=== PATIENT | female | born 1980 | race American Indian/Alaskan Native ===

== ENCOUNTER 2018-02-26 08:52 | Inpatient (IN) | payer MEDICAID ==
[2018-02-26 09:09] VITALS: BMI 26.5
[2018-02-26] MEDS ORDERED: Morphine 4 mg/ml ISec IVP STA (09:43)
[2018-02-26 09:56] LABS: BASO # 0.01 K/mm3 (0.0-2.0); GRAN # 23.73 (1.4-6.5); GRAN % 88.8 % (50.0-68.0); HEMOGLOBIN 11.6 g/dL (12.0-16.0); LYMPH # 1.1 (1.2-3.4); LYMPH % 4.2 % (22.0-35.0); MEAN CELL VOLUME 73.4 fl (80.0-105.0); MEAN CORPUSCULAR HEMOGLOBIN 24.1 pg (25.0-35.0); MEAN CORPUSCULAR HGB CONC 32.9 g/dl (31.0-37.0); MEAN PLATELET VOLUME 11.5 fl (7.0-11.0); MONO # 1.9 (0.1-0.6); PLATELET COUNT 219 10^3/uL (120.0-450.0); RBC 4.81 10^6/uL (3.5-6.1); RED CELL DISTRIBUTION WIDTH 14.9 % (11.5-14.5)
[2018-02-26 10:02] LABS: WHITE BLOOD COUNT 26.7 10^3/uL (4.5-11.0)
--- NOTE | 2018-02-26 10:02 | ED PDOC ---
Arrival/HPI - General Chief Complaint: Back Pain Time Seen by Provider: 02/26/18 09:09 Historian: Patient, Partner (fijermaine) - History of Present Illness Narrative History of Present Illness (Text): 02/26/18 10:00 A 37 year old female, whose past medical history includes hypertension, who is accompanied by madonna, presents to the emergency department complaining of chest pain and left-shoulder pain since last night. Notes chest pain yesterday felt like a tight and pulling sensation. Patient reports also experiencing associated cough with bright red blood, shortness of breath, and lower back pain. States chest pain worsens with cough, and is unable to take deep breaths. Patient denies any fever, or any other complaints at this time. NKDA. No PMD Time/Duration: Other (last night) Past Medical History - Provider Review Nursing Documentation Reviewed: Yes - Cardiac Hx Hypertension: Yes - Psychiatric Hx Substance Use: Yes Family/Social History - Physician Review Nursing Documentation Reviewed: Yes Family/Social History: No Known Family HX Smoking Status: Light Smoker < 10 Cigarettes Daily Hx Alcohol Use: No Hx Substance Use: Yes Substance used: marijuana Allergies/Home Meds Allergies/Adverse Reactions: Allergies No Known Allergies Allergy (Verified 02/26/18 09:06) Home Medications: Home Meds Medication Instructions Recorded Confirmed No Known Home Med 02/26/18 02/26/18 Review of Systems - Physician Review All systems were reviewed & negative as marked: Yes - Review of Systems Constitutional: absent: Fevers Respiratory: SOB, Cough (with bright red blood, which worsens chest pain.) Musculoskeletal: Back Pain (lower back pain) Physical Exam - Physical Exam Narrative Physical Exam (Text): Gen: VS reviewed, alert, well developed, well nourished, nontoxic, moderate distress secondary to pain. ENT: normal pharynx. Eye: EOMI, PERRL. Neck: no JVD, supple, no adenopathy. CV: regular rate, regular rhythm, no rubs, no murmur, no gallops, S1, S2, pulses equal and strong. Pulm: no distress, clear to auscultation, no wheeze, no rhonchi, breath sounds equal, no rales. Abd: soft, nontender, no guarding, no rebound, no rigidity, normal bowel sounds. Ext: no edema. Skin: good color, no rash, no cyanosis. Psych: responds appropriately to questions, normal affect. Neuro: oriented x 3, CN2-12 intact grossly, motor intact, sensation intact. Back: diffuse left upper back and left CVA tenderness. Vital Signs Temp Pulse Resp BP Pulse Ox 02/26/18 08:53 98.1 F 92 H 18 187/104 H 100 Medical Decision Making ED Course and Treatment: 02/26/18 10:05 Impression: 37 year old female with chest pain and left-shoulder pain, associated cough with bright red blood, shortness of breath, and lower back pain. Plan: -- EKG -- Chest X-ray -- Morphine -- Labs -- POC Urine Pregancy Test -- Reassess and disposition Progress Notes: 02/26/18 11:13 re-eval, patient still in significant pain, jsut received dose of morphine. on repeat inspection of the back, patient appears to have midline spinal tenderness at about the TL junction, no CVAT, no cellulitis skin changes, very hot to touch. at this time will extend workup to eval for spinal epidural abscess, add empiric IV abx. Perhaps there is a multifocal source of infection, will continue with CTA as the patient reports hemoptysis. 02/26/18 11:19 02/26/18 14:[address] lopez to the hospitalist service. patient to be admitted for iv abx, tx pneumonia - RAD Interpretation Narrative RAD Interpretations (Text): 02/26/2018 10:47 Chest X-ray IMPRESSION: No active disease. Dictator: Mike Persaud MD Radiology Orders: 02/26/18 09:42 CHEST PORTABLE [RAD] Stat - EKG Interpretation EKG Interpretation (Text): 02/26/18 09:02 nsr at 96 bpm, nml qrs, lvh with repol abn, prolonged QT Interpreted by ED Physician: Yes - Medication Orders Current Medication Orders: Discontinued Medications Morphine Sulfate (Morphine) 4 mg IVP STAT STA Stop: 02/26/18 09:44 Last Admin: 02/26/18 09:55 Dose: 4 mg SHAWNA Pain Assessment Document 02/26/18 09:55 [place] (Rec: 02/26/18 09:55 [place] [facility] [id number] Pain Reassessment Is this a pain reassessment? No Sleep Is patient sleeping during reassessment? No Presence of Pain Presence of Pain Yes Pain Scale Used Protocol: PSCALES Pain Scale Used Numeric Location Pain Location Body Site Back Description Description Intermittent Intensity of Pain at present 10 Pain Behavior Guarding IVP Administration Document 02/26/18 09:55 DIEGO (Rec: 02/26/18 09:55 [place] [facility] [id number] Charges for Administration # of IVP Administrations 1 - Scribe Statement The provider has reviewed the documentation as recorded by the Maxwellibaldair Person Provider Scribe Attestation: All medical record entries made by the Scribaldair were at my direction and personally dictated by me. I have reviewed the chart and agree that the record accurately reflects my personal performance of the history, physical exam, medical decision making, and the department course for this patient. I have also personally directed, reviewed, and agree with the discharge instructions and disposition. Disposition/Present on Arrival - Present on Arrival Any Indicators Present on Arrival: No History of DVT/PE: No History of Uncontrolled Diabetes: No Urinary Catheter: No History of Decub. Ulcer: No History Surgical Site Infection Following: None - Disposition Have Diagnosis and Disposition been Completed?: Yes Diagnosis: Pneumonia Disposition: HOSPITALIZED Disposition Time: 14:44 Patient Plan: Telemetry Condition: STABLE Forms: [employer] ([place])
[2018-02-26 10:04] LABS: ALB/GLOB RATIO 0.8 (1.1-1.8); ALBUMIN 3.9 g/dL (3.0-4.8); ALT/SGPT 20 U/L (7-56); AST/SGOT 25 U/L (14-36); BLOOD UREA NITROGEN 18 mg/dL (7-21); CALCIUM 8.7 mg/dL (8.4-10.5); GFR NON-AFRICAN AMERICAN > 60; INR 1.2; PARTIAL THROMBOPLASTIN TIME 33.3 Seconds (25.1-36.5); PROTHROMBIN TIME 13.8 SECONDS (9.4-12.5)
[2018-02-26 10:15] LABS: TROPONIN I 0.04 ng/mL
[2018-02-26 10:18] LABS: LYMPHOCYTE 9 % (22.0-35.0); MONOCYTE 4 % (1.0-6.0); NEUTROPHIL 77 % (50.0-70.0)
[2018-02-26 10:19] LABS: BAND 10 % (0-2); PLATELET ESTIMATE NORMAL (NORMAL)
[2018-02-26 10:39] LABS: VENOUS BLOOD GAS BASE EXCESS 0.3 mmol/L (0.0-2.0); VENOUS BLOOD GAS PO2 32 mm/Hg (30-55); VENOUS BLOOD PH 7.35 (7.32-7.43)
[2018-02-26 10:43] LABS: PH,URINE 6.5 (4.7-8.0); URINE APPEARANCE CLEAR (CLEAR); URINE BILIRUBIN NEGATIVE (NEGATIVE); URINE BLOOD NEGATIVE (NEGATIVE); URINE COLOR YELLOW (YELLOW); URINE GLUCOSE (UA) NEGATIVE (NEGATIVE); URINE LEUKOCYTE ESTERASE NEGATIVE Leu/uL (NEGATIVE); URINE PROTEIN NEGATIVE mg/dL (<30 mg/dL)
--- NOTE | 2018-02-26 10:51 | RAD ---
Date of service: 02/26/2018 HISTORY: chest pain COMPARISON: No prior. FINDINGS: LUNGS: No active pulmonary disease. PLEURA: No significant pleural effusion identified, no pneumothorax apparent. CARDIOVASCULAR: No aortic atherosclerotic calcification present. Normal cardiac size. No pulmonary vascular congestion. OSSEOUS STRUCTURES: No significant abnormalities. VISUALIZED UPPER ABDOMEN: Normal. OTHER FINDINGS: None. IMPRESSION: No active disease.
[2018-02-26] MEDS ORDERED: Vancomycin 500 mg Inj IVPB STA (11:15)
[2018-02-26] MEDS ORDERED: Piperacillin/Tazobact 3.375 gm 100 ML IVPB STA (11:16)
[2018-02-26] MEDS ORDERED: Vancomycin 1gm in NS 250ml 1 GM/250 ML BAG IVPB STA (11:19)
[2018-02-26] MEDS ORDERED: Iohexol 350 MG/100 ML VIAL ONE (11:20)
--- NOTE | 2018-02-26 11:57 | CT ---
Date of service: 02/26/2018 PROCEDURE: CT Chest with contrast (Pulmonary Angiogram) HISTORY: pulmonary embolism COMPARISON: None available. TECHNIQUE: Axial computed tomography images were obtained of the chest in the pulmonary arterial phase of enhancement. Coronal and sagittal reformatted images were created and reviewed. Intravenous contrast dose: 100 mL of Omnipaque 350 Radiation dose: Total exam DLP = 418.1 mGy-cm. This CT exam was performed using one or more of the following dose reduction techniques: Automated exposure control, adjustment of the mA and/or kV according to patient size, and/or use of iterative reconstruction technique. FINDINGS: PULMONARY ARTERIES: Suboptimal opacification of the peripheral subsegmental pulmonary arteries. No central pulmonary embolism. The main pulmonary artery is enlarged AORTA: No acute findings. No thoracic aortic aneurysm. No aortic atherosclerotic calcification or mural plaque present. LUNGS: There is airspace consolidation noted at the left lung lower lobe may represent a pneumonia or aspiration. PLEURAL SPACES: Unremarkable. No effusion or pneumothorax. HEART: The heart is enlarged. No evidence of significant pericardial effusion. LYMPH NODES: Mildly enlarged mediastinal and axillary lymphadenopathy noted. BONES, CHEST WALL: Unremarkable. No fracture or destructive lesion OTHER FINDINGS: The scans through the upper abdomen demonstrate hepatomegaly with diffuse low-attenuation of the liver. IMPRESSION: No evidence of central pulmonary embolus. Suboptimal opacification of the peripheral subsegmental pulmonary arteries. Airspace consolidation at the left lung lower lobe likely representing pneumonia or aspiration. Cardiomegaly. Mild mediastinal and axillary lymphadenopathy.
[2018-02-26] MEDS ORDERED: Gadodiamide 287 MG/ML VIAL (15ML) IV ONE (12:49)
--- NOTE | 2018-02-26 14:28 | MRI ---
Date of service: 02/26/2018 PROCEDURE: MR THORACIC SPINE WITH AND WITHOUT CONTRAST HISTORY: spinal epidural abscess COMPARISON: None available. TECHNIQUE: Multiecho multiplanar sequences were performed through the thoracic spine with and without the use of intravenous contrast. FINDINGS: ALIGNMENT: Normal thoracic spinal alignment. Normal thoracic kyphosis. VERTEBRA: Vertebral body height are preserved. MARROW: Marrow signal unremarkable. PARASPINAL SOFT TISSUES: Unremarkable. CORD: Unremarkable thoracic cord. No volume loss, signal abnormality or syrinx. DISCS: No disc herniation, spinal canal stenosis, or neuroforaminal narrowing. ENHANCEMENT: No abnormal enhancement. OTHER FINDINGS: None. IMPRESSION: No MRI evidence of epidural abscess. No evidence of spinal or neural foraminal narrowing. No evidence of discitis osteomyelitis.
--- NOTE | 2018-02-26 14:34 | MRI ---
Date of service: 02/26/2018 PROCEDURE: MR LUMBAR SPINE WITH AND WITHOUT CONTRAST HISTORY: spinal epidural abscess COMPARISON: None available. TECHNIQUE: Multiecho multiplanar sequences were performed through the lumbar spine with and without the use of intravenous contrast. FINDINGS: Normal lumbar lordosis. Vertebral body heights are preserved. Marrow signal unremarkable. Conus medullaris unremarkable at the level of T12 Paraspinal soft tissues are unremarkable. No abnormal enhancement. T12-L1: No disc herniation, spinal canal stenosis or neural foraminal narrowing. L1-2: No disc herniation, spinal canal stenosis or neural foraminal narrowing. L2-3: No disc herniation, spinal canal stenosis or neural foraminal narrowing. L3-4: No disc herniation, spinal canal stenosis or neural foraminal narrowing. L4-5: No disc herniation, spinal canal stenosis or neural foraminal narrowing. L5-S1: Ndoh-xi-wlyygbaj degenerative disc and endplate changes noted. There is bulging disc at L5-S1 associated with mild posterior ligament and facet joint hypertrophy which resulting in mild spinal and neural foraminal narrowing. OTHER FINDINGS: None. IMPRESSION: No evidence of epidural abscess. Degenerative changes and bulging disc at L5-S1 associated with posterior ligament and facet joint hypertrophy which resulting in mild spinal and neural foraminal narrowing.
[2018-02-26] MEDS ORDERED: Magnesium Sulfate 2 GM in Sodium Chloride 0.9% 100 ML IVPB ONE (16:47)
--- NOTE | 2018-02-26 16:48 | CP.PCM.HP ---
<Kota Hanks - Last Filed: 02/26/18 20:31> History of Present Illness - History of Present Illness History of Present Illness: CC: Cough, chest pain, and back pain 37 F with PMHx of HTN non compliant with her medications (last took her BP medication 4 years ago) presents to the ED with cough, chest pain, and back pain. Patient states that her cough started 1 week ago and this morning it was productive with white phlegm that was blood tinged. She also complained of L sided chest pain that started last night and radiating to her neck and back. Patient also complained of lower back pain since last night. Patient denies any sick contacts or travel history. Denies any fever,chills, palpitations, sob, abd pain, n/v/d. 12 Point ROS performed and neg other than stated above PMH: HTN PSH: Denies Med: none ALL: NKDA SH: smokes 1/2 PPD, deneis etoh use, admits tosmoking marijuana FH: mother with DM Present on Admission - Present on Admission Any Indicators Present on Admission: No Review of Systems - Review of Systems All systems: reviewed and no additional remarkable complaints except Past Patient History - Past Social History Smoking Status: Light Smoker < 10 Cigarettes Daily - CARDIAC Hx Hypertension: Yes - PSYCHIATRIC Hx Substance Use: Yes Meds Allergies/Adverse Reactions: Allergies Allergy/AdvReac Type Severity Reaction Status Date / Time No Known Allergies Allergy Verified 02/26/18 18:16 Physical Exam - Head Exam Head Exam: ATRAUMATIC, NORMOCEPHALIC - Eye Exam Eye Exam: EOMI, PERRL Pupil Exam: PERRL - Respiratory Exam Respiratory Exam: Rhonchi (crackles of b/l lower lung feilds ) - Cardiovascular Exam Cardiovascular Exam: REGULAR RHYTHM, +S1, +S2 - GI/Abdominal Exam GI & Abdominal Exam: Normal Bowel Sounds, Soft - Extremities Exam Extremities exam: Negative for: calf tenderness, pedal edema - Back Exam Back exam: FULL ROM, tenderness. absent: paraspinal tenderness, vertebral tenderness - Neurological Exam Neurological exam: Alert, CN II-XII Intact, Normal Gait - Psychiatric Exam Psychiatric exam: Normal Affect, Normal Mood - Skin Skin Exam: Normal Color, Warm Results - Vital Signs Recent Vital Signs: Last Vital Signs Temp 99.5 F 02/26/18 16:16 Pulse 92 H 02/26/18 16:00 Resp 18 02/26/18 16:00 BP 151/91 H 02/26/18 16:00 Pulse Ox 100 02/26/18 16:00 - Labs Result Diagrams: 02/26/18 09:35 02/26/18 09:35 Labs: Laboratory Results - last 24 hr 02/26/18 02/26/18 02/26/18 09:00 09:35 09:35 WBC 26.7 H* RBC 4.81 Hgb 11.6 L Hct 35.3 L MCV 73.4 L MCH 24.1 L MCHC 32.9 RDW 14.9 H Plt Count 219 MPV 11.5 H Gran % 88.8 H Lymph % (Auto) 4.2 L [place] % (Auto) 7.0 H Eos % (Auto) 0.0 L Baso % (Auto) 0.0 Gran # 23.73 H Lymph # (Auto) 1.1 L [place] # (Auto) 1.9 H Eos # (Auto) 0.0 Baso # (Auto) 0.01 Neutrophils % (Manual) 77 H Band Neutrophils % 10 H Lymphocytes % (Manual) 9 L Monocytes % (Manual) 4 Platelet Evaluation Normal ESR 30 H PT 13.8 H INR 1.20 APTT 33.3 D-Dimer, Quantitative 269 H pO2 VBG pH VBG pCO2 VBG HCO3 VBG Total CO2 VBG O2 Sat (Calc) VBG Base Excess VBG Potassium Glucose Lactate FiO2 Sodium Potassium Chloride Carbon Dioxide Anion Gap BUN Creatinine Est GFR ( Amer) Est GFR (Non-Af Amer) Random Glucose Calcium Magnesium Total Bilirubin AST ALT Alkaline Phosphatase Troponin I Total Protein Albumin Globulin Albumin/Globulin Ratio TSH 3rd Generation Venous Blood Potassium Urine Color Urine Appearance Urine pH Ur Specific [place] Urine Protein Urine Glucose (UA) Urine Ketones Urine Blood Urine Nitrate Urine Bilirubin Urine Urobilinogen Ur Leukocyte Esterase Influenza Typ A,B (EIA) 02/26/18 02/26/18 02/26/18 09:35 09:35 10:14 WBC RBC Hgb Hct MCV MCH MCHC RDW Plt Count MPV Gran % Lymph % (Auto) [place] % (Auto) Eos % (Auto) Baso % (Auto) Gran # Lymph # (Auto) [place] # (Auto) Eos # (Auto) Baso # (Auto) Neutrophils % (Manual) Band Neutrophils % Lymphocytes % (Manual) Monocytes % (Manual) Platelet Evaluation ESR PT INR APTT D-Dimer, Quantitative pO2 32 VBG pH 7.35 VBG pCO2 48.0 VBG HCO3 26.5 VBG Total CO2 28.0 VBG O2 Sat (Calc) 63.7 VBG Base Excess 0.3 VBG Potassium 3.6 Glucose 121 H Lactate 1.0 FiO2 21.0 Sodium 136 135.0 Potassium 3.7 Chloride 103 102.0 Carbon Dioxide 26 Anion Gap 11 BUN 18 Creatinine 0.8 Est GFR ( Amer) > 60 Est GFR (Non-Af Amer) > 60 Random Glucose 117 H Calcium 8.7 Magnesium 1.6 L Total Bilirubin 1.4 H AST 25 ALT 20 Alkaline Phosphatase 59 Troponin I 0.04 Total Protein 9.0 H Albumin 3.9 Globulin 5.1 Albumin/Globulin Ratio 0.8 L TSH 3rd Generation 0.58 Venous Blood Potassium 3.6 Urine Color Urine Appearance Urine pH Ur Specific [place] Urine Protein Urine Glucose (UA) Urine Ketones Urine Blood Urine Nitrate Urine Bilirubin Urine Urobilinogen Ur Leukocyte Esterase Influenza Typ A,B (EIA) 02/26/18 02/26/18 10:18 10:30 WBC RBC Hgb Hct MCV MCH MCHC RDW Plt Count MPV Gran % Lymph % (Auto) [place] % (Auto) Eos % (Auto) Baso % (Auto) Gran # Lymph # (Auto) [place] # (Auto) Eos # (Auto) Baso # (Auto) Neutrophils % (Manual) Band Neutrophils % Lymphocytes % (Manual) Monocytes % (Manual) Platelet Evaluation ESR PT INR APTT D-Dimer, Quantitative pO2 VBG pH VBG pCO2 VBG HCO3 VBG Total CO2 VBG O2 Sat (Calc) VBG Base Excess VBG Potassium Glucose Lactate FiO2 Sodium Potassium Chloride Carbon Dioxide Anion Gap BUN Creatinine Est GFR ( Amer) Est GFR (Non-Af Amer) Random Glucose Calcium Magnesium Total Bilirubin AST ALT Alkaline Phosphatase Troponin I Total Protein Albumin Globulin Albumin/Globulin Ratio TSH 3rd Generation Venous Blood Potassium Urine Color Yellow Urine Appearance Clear Urine pH 6.5 Ur Specific [place] <= 1.005 Urine Protein Negative Urine Glucose (UA) Negative Urine Ketones Negative Urine Blood Negative Urine Nitrate Negative Urine Bilirubin Negative Urine Urobilinogen 1.0 H Ur Leukocyte Esterase Negative Influenza Typ A,B (EIA) Negative for flu a/b Assessment & Plan - Assessment and Plan (Free Text) Assessment: 37 F with PMHx of HTN non compliant with her medications (last took her BP medication 4 years ago) presents to the ED with cough, chest pain, and backpain, found to be sepsit with L lower lobe pneumonia. Sepsis with Left lower lobe pneumonia - Fever 102.8F and tachycardic in the ED - CT chest shows LLL pneumonia - Thoracic and lumbar MRI showed no acute dx - Broad spectrum abx with Vanc and zosyn - Septic work up with sputum culture, strep and legionella. Influenza was neg - Duoneb as needed for wheezing and sob - Tylenol as needed for fever - Mucinex as needed for cough - Daily labs Hx of HTN - EKG and chest CT shows signs of cardiomegally - Started on Lisinopril - Echo ordered GI/DVT ppx - Protonix and lovenox sc - Heart healthy diet Case and plan was reviewed and discussed with Dr Rader. <Catalina Rader - Last Filed: 03/03/18 18:10> Results - Vital Signs Recent Vital Signs: Last Vital Signs Temp 99.4 F 03/03/18 12:58 Pulse 75 03/03/18 15:30 Resp 20 03/03/18 12:58 BP 133/65 03/03/18 15:30 Pulse Ox 99 03/03/18 00:00 - Labs Result Diagrams: 03/03/18 07:00 03/03/18 07:00 Labs: Laboratory Results - last 24 hr 03/03/18 03/03/18 03/03/18 07:00 07:00 07:27 WBC 10.4 RBC 4.51 Hgb 10.4 L Hct 32.6 L MCV 72.3 L MCH 23.1 L MCHC 31.9 RDW 14.6 H Plt Count 261 MPV 10.4 Gran % 69.3 H Lymph % (Auto) 12.6 L [place] % (Auto) 15.8 H Eos % (Auto) 2.1 Baso % (Auto) 0.2 Gran # 7.17 H Lymph # (Auto) 1.3 [place] # (Auto) 1.6 H Eos # (Auto) 0.2 Baso # (Auto) 0.02 Sodium 136 Potassium 4.1 Chloride 102 Carbon Dioxide 27 Anion Gap 11 BUN 14 Creatinine 0.7 Est GFR ( Amer) > 60 Est GFR (Non-Af Amer) > 60 POC Glucose (mg/dL) 79 Random Glucose 91 Calcium 8.9 Total Bilirubin 0.6 AST 17 ALT 19 Alkaline Phosphatase 58 Total Protein 8.1 Albumin 3.5 Globulin 4.5 Albumin/Globulin Ratio 0.8 L 03/03/18 11:13 WBC RBC Hgb Hct MCV MCH MCHC RDW Plt Count MPV Gran % Lymph % (Auto) [place] % (Auto) Eos % (Auto) Baso % (Auto) Gran # Lymph # (Auto) [place] # (Auto) Eos # (Auto) Baso # (Auto) Sodium Potassium Chloride Carbon Dioxide Anion Gap BUN Creatinine Est GFR ( Amer) Est GFR (Non-Af Amer) POC Glucose (mg/dL) 87 Random Glucose Calcium Total Bilirubin AST ALT Alkaline Phosphatase Total Protein Albumin Globulin Albumin/Globulin Ratio Attending/Attestation - Attestation I have personally seen and examined this patient.: Yes I have fully participated in the care of the patient.: Yes I have reviewed all pertinent clinical information: Yes Notes (Text): 03/03/18 18:09 Medical record note made by the resident after discussion with my direction and input after the patient was personally seen and examined by me. I have reviewed the chart and agree that the record accurately reflects by personal performance of the history, physical exam, data review, and medical decision-making, in the course for the patient. I have also personally directed the plan of care. 37 F with PMHx of HTN non compliant with her medications presents to the ED with cough, chest pain, and backpain, found to be septic with L lower lobe pneumonia and uncontrolled HTN Agreed with IV antibiotics,we will follow up cultures. We will also adjust patient anti hypertensive medications. Management plan was discussed in detail with patient. Education was provided.
[2018-02-26] MEDS ORDERED: Magnesium Sulfate 2 GM in 50 ml Water IVPB ONE (17:00)
--- NOTE | 2018-02-26 17:58 | CARD ---
APPROVED REPORT Date of service: 02/26/2018 EKG Measurement Heart [id number] <Conclusion> Normal sinus rhythm Biatrial enlargement Left ventricular hypertrophy with repolarization abnormality Nonspecific ST abnormality Prolonged QT Abnormal ECG
[2018-02-26] MEDS: guaiFENesin-DM 600-30 mg ER Tab PO SCH (19:05)
[2018-02-26] MEDS ORDERED: Pneumococcal 23-Valent Vaccine IM ONE (21:24)
[2018-02-26] MEDS ORDERED: Influenza Vaccine 60 mcg/0.5 mL SYR (4YR UP) IM ONE (21:24)
[2018-02-26] MEDS: Piperacillin/Tazobact 3.375 gm 100 ML IVPB SCH (21:53)
[2018-02-26] MEDS ORDERED: Piperacillin/Tazobact 3.375 gm 100 ML IVPB SCH (22:00)
[2018-02-26] MEDS: Vancomycin 1gm in NS 250ml 1 GM/250 ML BAG IVPB SCH (23:15)
[2018-02-27] MEDS: Pantoprazole 40 mg EC Tab PO SCH (06:09)
[2018-02-27] MEDS: Piperacillin/Tazobact 3.375 gm 100 ML IVPB SCH ×3 (06:09→22:11)
[2018-02-27 06:55] LABS: BASO # 0.03 K/mm3 (0.0-2.0); BASO % 0.1 % (0.0-3.0); EOS % 0.1 % (1.5-5.0); GRAN # 27.62 (1.4-6.5); GRAN % 90.6 % (50.0-68.0); HEMOGLOBIN 12.5 g/dL (12.0-16.0); LYMPH # 1.8 (1.2-3.4); LYMPH % 5.8 % (22.0-35.0); MEAN CELL VOLUME 72.3 fl (80.0-105.0); MEAN CORPUSCULAR HEMOGLOBIN 23.9 pg (25.0-35.0); MEAN PLATELET VOLUME 11.3 fl (7.0-11.0); MONO % 3.4 % (1.0-6.0); RBC 5.24 10^6/uL (3.5-6.1); RED CELL DISTRIBUTION WIDTH 15.3 % (11.5-14.5)
--- NOTE | 2018-02-27 07:00 | CP.PCM.CON ---
<Denise Schuster - Last Filed: 02/27/18 10:13> History of Present Illness - History of Present Illness History of Present Illness: ID Consult Note - Dr. Ward CC: Productive cough and low back/chest pain HPI: 37 F with a PMHx of HTN and hx of miscarriage, and ovarian cyst presented to the [facility] with complaints of a productive cough x 1 week and associated chest and back discomfort. Patient states that she is producing whitish-yellow phlegm. However, last night the patient began to have associated lito blood in sputum x3 and back and chest pain that began last night. Patient noted that her chest and back pain are non-localized and radiate to her left neck and shoulder, as well as low back pain that also began last night. At its worst the pain was rated 10/10 and is intermittent and achy in quality and exacerbated by coughing, and 6/10 at its best. Patient has not traveled recently, and denied any sick contacts. Upon arrival to ED, pt found to be septic with fever, tachycardia, and leukocytosis. ID was consulted for management of pneumonia. Patient was seen and examined at bedside. No acute complaints at this time. Patient denied fever, chills, shortness of breath, palpitations, lightheadedness, headaches, abdominal pains, nausea, vomiting, diarrhea, constipation, dysuria, or hematuria. PMHx: HTN - noncompliant with meds, epidural complication, miscarriage, and ovarian cyst PSHx: Denied SHx: +tobacco: current 1/2 PPD, + marijuana, - etoh, denied ivdu FamHx: Mother: DM and emphysema Allergies: NKDA Meds: None Review of Systems - Review of Systems Review of Systems: as per HPI otherwise negative Past Patient History - Past Social History Smoking Status: Current Some Days Smoker - CARDIAC Hx Cardiac Disorders: Yes Hx Hypertension: Yes - PULMONARY Hx Respiratory Disorders: Yes (SMOKES 2-3 CIG A DAY,SMOKED SINCE SHE WAS 15 YRS OLD.) - NEUROLOGICAL Hx Neurological Disorder: No - HEENT Hx HEENT Problems: No - RENAL Hx Chronic Kidney Disease: No - ENDOCRINE/METABOLIC Hx Endocrine Disorders: No - HEMATOLOGICAL/ONCOLOGICAL Hx Blood Disorders: No - INTEGUMENTARY Hx Dermatological Problems: No - MUSCULOSKELETAL/RHEUMATOLOGICAL Hx Musculoskeletal Disorders: Yes (BULGING DISC,SPINAL STENOSIS ABSCESS) Hx Falls: No Hx Unsteady Gait: Yes - GASTROINTESTINAL Hx Gastrointestinal Disorders: No - GENITOURINARY/GYNECOLOGICAL Hx Genitourinary Disorders: No - PSYCHIATRIC Hx Psychophysiologic Disorder: No Hx Substance Use: Yes (MARIJUANA USE) - SURGICAL HISTORY Hx Surgeries: Yes Meds Allergies/Adverse Reactions: Allergies Allergy/AdvReac Type Severity Reaction Status Date / Time No Known Allergies Allergy Verified 02/26/18 18:16 - Medications Medications: Current Medications Acetaminophen (Tylenol 325mg Tab) 650 mg PO Q6H PRN PRN Reason: Fever >100.4 F Albuterol/Ipratropium (Duoneb 3 Mg/0.5 Mg (3 Ml) Ud) 3 ml IH [id number] PRN PRN Reason: Shortness of Breath Doxycycline Hyclate (Doryx) 100 mg PO Q12 ROSA; Protocol Last Admin: 02/26/18 23:15 Dose: 100 mg Enoxaparin Sodium (Lovenox) 40 mg SC DAILY ROSA; Protocol Guaifenesin/Dextromethorphan (Mucinex-Dm 600-30 Mg) 1 tab PO BID [facility] Last Admin: 02/26/18 19:05 Dose: 1 tab Piperacillin Sod/Tazobactam Sod (Zosyn 3.375 In Ns 100ml) 100 mls @ 25 mls/hr IVPB Q8 ROSA; Protocol Stop: 03/05/18 22:01 Last Admin: 02/27/18 06:09 Dose: 25 mls/hr Vancomycin HCl (Vancomycin 1gm) 1 gm in 250 mls @ 167 mls/hr IVPB Q12 [facility]; Protocol Last Admin: 02/26/18 23:15 Dose: 167 mls/hr Ketorolac Tromethamine (Toradol) 15 mg IVP Q6H [facility] Last Admin: 02/27/18 06:10 Dose: 15 mg Lisinopril (Zestril) 5 mg PO DAILY [facility] Last Admin: 02/26/18 19:04 Dose: 5 mg Pantoprazole Sodium (Protonix Ec Tab) 40 mg PO 0600 [facility] Last Admin: 02/27/18 06:09 Dose: 40 mg Physical Exam - Constitutional Appears: No Acute Distress - Head Exam Head Exam: ATRAUMATIC, NORMAL INSPECTION, NORMOCEPHALIC - Eye Exam Eye Exam: EOMI, Normal appearance, PERRL Pupil Exam: NORMAL ACCOMODATION, PERRL - ENT Exam ENT Exam: Mucous Membranes Dry - Respiratory Exam Respiratory Exam: Decreased Breath Sounds, Rhonchi - Cardiovascular Exam Cardiovascular Exam: REGULAR RHYTHM, +S1, +S2 - GI/Abdominal Exam GI & Abdominal Exam: Normal Bowel Sounds, Soft. absent: Tenderness - Extremities Exam Extremities exam: Positive for: normal inspection - Back Exam Back exam: NORMAL INSPECTION, tenderness - Neurological Exam Neurological exam: Alert, CN II-XII Intact, Oriented x3, Reflexes Normal - Psychiatric Exam Psychiatric exam: Normal Affect, Normal Mood - Skin Skin Exam: Dry, Intact, Normal Color, Warm Results - Vital Signs Recent Vital Signs: Last Vital Signs Temp 99.5 F 02/27/18 00:01 Pulse 91 H 02/27/18 02:00 Resp 20 02/27/18 00:01 BP 174/77 H 02/27/18 00:01 Pulse Ox 98 02/27/18 00:01 - Labs Result Diagrams: 02/27/18 05:50 02/27/18 05:50 Labs: Laboratory Results - last 24 hr 02/26/18 02/26/18 02/26/18 09:00 09:35 09:35 WBC 26.7 H* RBC 4.81 Hgb 11.6 L Hct 35.3 L MCV 73.4 L MCH 24.1 L MCHC 32.9 RDW 14.9 H Plt Count 219 MPV 11.5 H Gran % 88.8 H Lymph % (Auto) 4.2 L [place] % (Auto) 7.0 H Eos % (Auto) 0.0 L Baso % (Auto) 0.0 Gran # 23.73 H Lymph # (Auto) 1.1 L [place] # (Auto) 1.9 H Eos # (Auto) 0.0 Baso # (Auto) 0.01 Neutrophils % (Manual) 77 H Band Neutrophils % 10 H Lymphocytes % (Manual) 9 L Monocytes % (Manual) 4 Platelet Evaluation Normal ESR 30 H PT 13.8 H INR 1.20 APTT 33.3 D-Dimer, Quantitative 269 H pO2 VBG pH VBG pCO2 VBG HCO3 VBG Total CO2 VBG O2 Sat (Calc) VBG Base Excess VBG Potassium Glucose Lactate FiO2 Sodium Potassium Chloride Carbon Dioxide Anion Gap BUN Creatinine Est GFR ( Amer) Est GFR (Non-Af Amer) Random Glucose Hemoglobin A1c Calcium Magnesium Total Bilirubin AST ALT Alkaline Phosphatase Troponin I Total Protein Albumin Globulin Albumin/Globulin Ratio Procalcitonin TSH 3rd Generation Venous Blood Potassium Urine Color Urine Appearance Urine pH Ur Specific [place] Urine Protein Urine Glucose (UA) Urine Ketones Urine Blood Urine Nitrate Urine Bilirubin Urine Urobilinogen Ur Leukocyte Esterase Influenza Typ A,B (EIA) 02/26/18 02/26/18 02/26/18 09:35 09:35 10:14 WBC RBC Hgb Hct MCV MCH MCHC RDW Plt Count MPV Gran % Lymph % (Auto) [place] % (Auto) Eos % (Auto) Baso % (Auto) Gran # Lymph # (Auto) [place] # (Auto) Eos # (Auto) Baso # (Auto) Neutrophils % (Manual) Band Neutrophils % Lymphocytes % (Manual) Monocytes % (Manual) Platelet Evaluation ESR PT INR APTT D-Dimer, Quantitative pO2 32 VBG pH 7.35 VBG pCO2 48.0 VBG HCO3 26.5 VBG Total CO2 28.0 VBG O2 Sat (Calc) 63.7 VBG Base Excess 0.3 VBG Potassium 3.6 Glucose 121 H Lactate 1.0 FiO2 21.0 Sodium 136 135.0 Potassium 3.7 Chloride 103 102.0 Carbon Dioxide 26 Anion Gap 11 BUN 18 Creatinine 0.8 Est GFR ( Amer) > 60 Est GFR (Non-Af Amer) > 60 Random Glucose 117 H Hemoglobin A1c Calcium 8.7 Magnesium 1.6 L Total Bilirubin 1.4 H AST 25 ALT 20 Alkaline Phosphatase 59 Troponin I 0.04 Total Protein 9.0 H Albumin 3.9 Globulin 5.1 Albumin/Globulin Ratio 0.8 L Procalcitonin TSH 3rd Generation 0.58 Venous Blood Potassium 3.6 Urine Color Urine Appearance Urine pH Ur Specific [place] Urine Protein Urine Glucose (UA) Urine Ketones Urine Blood Urine Nitrate Urine Bilirubin Urine Urobilinogen Ur Leukocyte Esterase Influenza Typ A,B (EIA) 02/26/18 02/26/18 02/26/18 10:18 10:30 13:00 WBC RBC Hgb Hct MCV MCH MCHC RDW Plt Count MPV Gran % Lymph % (Auto) [place] % (Auto) Eos % (Auto) Baso % (Auto) Gran # Lymph # (Auto) [place] # (Auto) Eos # (Auto) Baso # (Auto) Neutrophils % (Manual) Band Neutrophils % Lymphocytes % (Manual) Monocytes % (Manual) Platelet Evaluation ESR PT INR APTT D-Dimer, Quantitative pO2 VBG pH VBG pCO2 VBG HCO3 VBG Total CO2 VBG O2 Sat (Calc) VBG Base Excess VBG Potassium Glucose Lactate FiO2 Sodium Potassium Chloride Carbon Dioxide Anion Gap BUN Creatinine Est GFR ( Amer) Est GFR (Non-Af Amer) Random Glucose Hemoglobin A1c Calcium Magnesium Total Bilirubin AST ALT Alkaline Phosphatase Troponin I Total Protein Albumin Globulin Albumin/Globulin Ratio Procalcitonin 2.99 H TSH 3rd Generation Venous Blood Potassium Urine Color Yellow Urine Appearance Clear Urine pH 6.5 Ur Specific [place] <= 1.005 Urine Protein Negative Urine Glucose (UA) Negative Urine Ketones Negative Urine Blood Negative Urine Nitrate Negative Urine Bilirubin Negative Urine Urobilinogen 1.0 H Ur Leukocyte Esterase Negative Influenza Typ A,B (EIA) Negative for flu a/b 02/26/18 02/26/18 02/26/18 17:00 17:45 22:00 WBC RBC Hgb Hct MCV MCH MCHC RDW Plt Count MPV Gran % Lymph % (Auto) [place] % (Auto) Eos % (Auto) Baso % (Auto) Gran # Lymph # (Auto) [place] # (Auto) Eos # (Auto) Baso # (Auto) Neutrophils % (Manual) Band Neutrophils % Lymphocytes % (Manual) Monocytes % (Manual) Platelet Evaluation ESR PT INR APTT D-Dimer, Quantitative pO2 VBG pH VBG pCO2 VBG HCO3 VBG Total CO2 VBG O2 Sat (Calc) VBG Base Excess VBG Potassium Glucose Lactate FiO2 Sodium Potassium Chloride Carbon Dioxide Anion Gap BUN Creatinine Est GFR ( Amer) Est GFR (Non-Af Amer) Random Glucose Hemoglobin A1c 5.9 Calcium Magnesium Total Bilirubin AST ALT Alkaline Phosphatase Troponin I 0.05 D 0.05 Total Protein Albumin Globulin Albumin/Globulin Ratio Procalcitonin TSH 3rd Generation Venous Blood Potassium Urine Color Urine Appearance Urine pH Ur Specific [place] Urine Protein Urine Glucose (UA) Urine Ketones Urine Blood Urine Nitrate Urine Bilirubin Urine Urobilinogen Ur Leukocyte Esterase Influenza Typ A,B (EIA) Assessment & Plan - Assessment and Plan (Free Text) Assessment: 37 F with a PMHx of HTN presented to the [facility] with complaints of a productive cough x 1 week and associated chest and back discomfort found to be septic with a Left lower lobe pneumonia on Chest CT. CAP Gm + Bacteremia Low back pain leukocytosis HTN Prolonged QTc H/o spinal epidural complication during tobacco abuse cannabis abuse Chest CT reviewed and demonstrated left lower lobe pneumonia, uptrending leukocytosis, elevated ESR, elevated PCT, negative flu, follow up blood culture, urine culture, sputum culture, CRP, Strep ag, HIV, Legionella, UA, UCx. MRI of t he thoracic spine shows no discitis, osteomyletis. MRI Lumbar spine shows degenerative changes. Will place pt on vancomycin, zosyn, and doxycycline. Recommend further evaluation of ovarian cyst - US. Will continue to monitor clinically and reassess after pending labs. <Vadim Ward - Last Filed: 02/27/18 17:22> Meds - Medications Medications: Current Medications Acetaminophen (Tylenol 325mg Tab) 650 mg PO Q6H PRN PRN Reason: Fever >100.4 F Albuterol/Ipratropium (Duoneb 3 Mg/0.5 Mg (3 Ml) Ud) 3 ml IH [id number] PRN PRN Reason: Shortness of Breath Last Admin: 02/27/18 11:20 Dose: 3 ml Doxycycline Hyclate (Doryx) 100 mg PO Q12 [facility]A; Protocol Last Admin: 02/27/18 11:25 Dose: 100 mg Enoxaparin Sodium (Lovenox) 40 mg SC DAILY [facility]; Protocol Last Admin: 02/27/18 11:26 Dose: 40 mg Guaifenesin/Dextromethorphan (Mucinex-Dm 600-30 Mg) 1 tab PO BID [facility] Last Admin: 02/27/18 11:25 Dose: 1 tab Piperacillin Sod/Tazobactam Sod (Zosyn 3.375 In Ns 100ml) 100 mls @ 25 mls/hr IVPB Q8 [facility]; Protocol Stop: 03/05/18 22:01 Last Admin: 02/27/18 14:33 Dose: 25 mls/hr Vancomycin HCl (Vancomycin 1gm) 1 gm in 250 mls @ 167 mls/hr IVPB Q12 [facility]; Protocol Last Admin: 02/27/18 11:26 Dose: 167 mls/hr Ketorolac Tromethamine (Toradol) 15 mg IVP Q4H [facility] Last Admin: 02/27/18 14:33 Dose: 15 mg Lisinopril (Zestril) 5 mg PO DAILY [facility] Last Admin: 02/27/18 11:24 Dose: 5 mg Ondansetron HCl (Zofran Inj) 4 mg IVP Q6H PRN PRN Reason: Nausea/Vomiting Pantoprazole Sodium (Protonix Ec Tab) 40 mg PO 0600 [facility] Last Admin: 02/27/18 06:09 Dose: 40 mg Results - Vital Signs Recent Vital Signs: Last Vital Signs Temp 98.5 F 02/27/18 11:38 Pulse 86 02/27/18 11:38 Resp 20 02/27/18 11:38 BP 183/109 H 02/27/18 11:38 Pulse Ox 98 02/27/18 06:00 - Labs Result Diagrams: 02/27/18 05:50 02/27/18 05:50 Labs: Laboratory Results - last 24 hr 02/26/18 02/26/18 02/26/18 09:00 13:00 17:00 WBC RBC Hgb Hct MCV MCH MCHC RDW Plt Count MPV Gran % Lymph % (Auto) [place] % (Auto) Eos % (Auto) Baso % (Auto) Gran # Lymph # (Auto) [place] # (Auto) Eos # (Auto) Baso # (Auto) Sodium Potassium Chloride Carbon Dioxide Anion Gap BUN Creatinine Est GFR ( Amer) Est GFR (Non-Af Amer) Random Glucose Hemoglobin A1c 5.9 Calcium Magnesium Total Bilirubin AST ALT Alkaline Phosphatase Troponin I C-React Prot High Sens > 15.00 H Total Protein Albumin Globulin Albumin/Globulin Ratio Procalcitonin 2.99 H Urine Opiates Screen Urine Methadone Screen Ur Barbiturates Screen Ur Phencyclidine Scrn Ur Amphetamines Screen U Benzodiazepines Scrn U Oth Cocaine Metabols U Cannabinoids Screen HIV 1&2 Ag/Ab, 4th Gen Ur L.pneumophila Ag 02/26/18 02/26/18 02/26/18 17:45 20:30 22:00 WBC RBC Hgb Hct MCV MCH MCHC RDW Plt Count MPV Gran % Lymph % (Auto) [place] % (Auto) Eos % (Auto) Baso % (Auto) Gran # Lymph # (Auto) [place] # (Auto) Eos # (Auto) Baso # (Auto) Sodium Potassium Chloride Carbon Dioxide Anion Gap BUN Creatinine Est GFR ( Amer) Est GFR (Non-Af Amer) Random Glucose Hemoglobin A1c Calcium Magnesium Total Bilirubin AST ALT Alkaline Phosphatase Troponin I 0.05 D 0.05 C-React Prot High Sens Total Protein Albumin Globulin Albumin/Globulin Ratio Procalcitonin Urine Opiates Screen Urine Methadone Screen Ur Barbiturates Screen Ur Phencyclidine Scrn Ur Amphetamines Screen U Benzodiazepines Scrn U Oth Cocaine Metabols U Cannabinoids Screen HIV 1&2 Ag/Ab, 4th Gen Nonreactive Ur L.pneumophila Ag 02/27/18 02/27/18 02/27/18 05:50 05:50 09:00 WBC 30.5 H* RBC 5.24 Hgb 12.5 Hct 37.9 MCV 72.3 L MCH 23.9 L MCHC 33.0 RDW 15.3 H Plt Count 212 MPV 11.3 H Gran % 90.6 H Lymph % (Auto) 5.8 L [place] % (Auto) 3.4 Eos % (Auto) 0.1 L Baso % (Auto) 0.1 Gran # 27.62 H Lymph # (Auto) 1.8 [place] # (Auto) 1.0 H Eos # (Auto) 0.0 Baso # (Auto) 0.03 Sodium 138 Potassium 3.5 L Chloride 104 Carbon Dioxide 26 Anion Gap 10 BUN 15 Creatinine 0.8 Est GFR ( Amer) > 60 Est GFR (Non-Af Amer) > 60 Random Glucose 104 Hemoglobin A1c Calcium 8.9 Magnesium 2.2 Total Bilirubin 1.3 AST 30 ALT 19 Alkaline Phosphatase 83 Troponin I C-React Prot High Sens Total Protein 8.5 H Albumin 3.5 Globulin 5.0 Albumin/Globulin Ratio 0.7 L Procalcitonin Urine Opiates Screen Urine Methadone Screen Ur Barbiturates Screen Ur Phencyclidine Scrn Ur Amphetamines Screen U Benzodiazepines Scrn U Oth Cocaine Metabols U Cannabinoids Screen HIV 1&2 Ag/Ab, 4th Gen Ur L.pneumophila Ag Negative 02/27/18 09:00 WBC RBC Hgb Hct MCV MCH MCHC RDW Plt Count MPV Gran % Lymph % (Auto) [place] % (Auto) Eos % (Auto) Baso % (Auto) Gran # Lymph # (Auto) [place] # (Auto) Eos # (Auto) Baso # (Auto) Sodium Potassium Chloride Carbon Dioxide Anion Gap BUN Creatinine Est GFR ( Amer) Est GFR (Non-Af Amer) Random Glucose Hemoglobin A1c Calcium Magnesium Total Bilirubin AST ALT Alkaline Phosphatase Troponin I C-React Prot High Sens Total Protein Albumin Globulin Albumin/Globulin Ratio Procalcitonin Urine Opiates Screen Positive H Urine Methadone Screen Negative Ur Barbiturates Screen Negative Ur Phencyclidine Scrn Negative Ur Amphetamines Screen Negative U Benzodiazepines Scrn Negative U Oth Cocaine Metabols Negative U Cannabinoids Screen Positive H HIV 1&2 Ag/Ab, 4th Gen Ur L.pneumophila Ag Assessment & Plan - Assessment and Plan (Free Text) Assessment: Infectious diseases Attending Physician Attestation Patient seen and examined, discussed with medical numerical control operator. I have reviewed the patient's history of present illness, past medical, social, personal and family histories, pertinent physical exam findings, course so far in this hospital admission, pertinent laboratory and imaging results. I agree with the above findings, assessment and plan. In addition, will start Vancomycin and Zosyn and Doxyccylien for this patient with sepsis due to GPC chains bacteremia with lower lobe CAP. Follow up blood, sputum final cx results. PCT is elevated and can trend. Follow up urine LEgionella Ag as well.
[2018-02-27 07:02] LABS: WHITE BLOOD COUNT 30.5 10^3/uL (4.5-11.0)
[2018-02-27 07:15] LABS: ALB/GLOB RATIO 0.7 (1.1-1.8); ALBUMIN 3.5 g/dL (3.0-4.8); ALT/SGPT 19 U/L (7-56); AST/SGOT 30 U/L (14-36); BLOOD UREA NITROGEN 15 mg/dL (7-21); CALCIUM 8.9 mg/dL (8.4-10.5); GFR NON-AFRICAN AMERICAN > 60
[2018-02-27] MEDS ORDERED: Potassium Chloride 40 mEq/30 ml LIQ UD PO STA (09:23)
[2018-02-27 09:40] LABS: BARBITURATES, UR NEGATIVE (NEGATIVE); BENZODIAZEPINES, UR NEGATIVE (NEGATIVE); OPIATES, UR POSITIVE (NEGATIVE); PHENCYCLIDINE, UR NEGATIVE (NEGATIVE)
[2018-02-27] MEDS ORDERED: Vancomycin 1gm in NS 250ml 1 GM/250 ML BAG IVPB SCH (10:00)
[2018-02-27] MEDS: Albuterol-Ipratrop 3 mg / 0.5 (3 ml) UD IH PRN ×2 (11:20→21:24)
[2018-02-27] MEDS: guaiFENesin-DM 600-30 mg ER Tab PO SCH ×2 (11:25→18:17)
[2018-02-27] MEDS: Vancomycin 1gm in NS 250ml 1 GM/250 ML BAG IVPB SCH ×2 (11:26→22:12)
[2018-02-27] MEDS: Enoxaparin 40 mg Syringe SC SCH (11:26)
--- NOTE | 2018-02-27 12:50 | CP.PCM.PN ---
<Kota Hanks - Last Filed: 02/27/18 12:43> Subjective - Date & Time of Evaluation Date of Evaluation: 02/27/18 Time of Evaluation: 07:00 - Subjective Subjective: Hospitalist Progress Note: Pt seen and examined at bedside. No acute events overnight. Patient c/o R sided flank pain radiating to her groin. Patient states that her cough and associated chest pain has improved. No other complaints. 12 Point ROS performed and neg other than stated above. Objective - Vital Signs/Intake and Output Vital Signs (last 24 hours): Temp Pulse Resp BP Pulse Ox 98.5 F 86 20 183/109 H 98 02/27/18 11:38 02/27/18 11:38 02/27/18 11:38 02/27/18 11:38 02/27/18 06:00 Intake and Output: 02/27/18 02/27/18 06:59 18:59 Intake Total 360 Output Total 2 Balance 358 - Medications Medications: Current Medications Acetaminophen (Tylenol 325mg Tab) 650 mg PO Q6H PRN PRN Reason: Fever >100.4 F Albuterol/Ipratropium (Duoneb 3 Mg/0.5 Mg (3 Ml) Ud) 3 ml IH [id number] PRN PRN Reason: Shortness of Breath Last Admin: 02/27/18 11:20 Dose: 3 ml Doxycycline Hyclate (Doryx) 100 mg PO Q12 ROSA; Protocol Last Admin: 02/27/18 11:25 Dose: 100 mg Enoxaparin Sodium (Lovenox) 40 mg SC DAILY [facility]; Protocol Last Admin: 02/27/18 11:26 Dose: 40 mg Guaifenesin/Dextromethorphan (Mucinex-Dm 600-30 Mg) 1 tab PO BID [facility] Last Admin: 02/27/18 11:25 Dose: 1 tab Piperacillin Sod/Tazobactam Sod (Zosyn 3.375 In Ns 100ml) 100 mls @ 25 mls/hr IVPB Q8 [facility]; Protocol Stop: 03/05/18 22:01 Last Admin: 02/27/18 06:09 Dose: 25 mls/hr Vancomycin HCl (Vancomycin 1gm) 1 gm in 250 mls @ 167 mls/hr IVPB Q12 [facility]; Protocol Last Admin: 02/27/18 11:26 Dose: 167 mls/hr Ketorolac Tromethamine (Toradol) 15 mg IVP Q4H [facility] Last Admin: 02/27/18 11:28 Dose: 15 mg Lisinopril (Zestril) 5 mg PO DAILY [facility] Last Admin: 02/27/18 11:24 Dose: 5 mg Pantoprazole Sodium (Protonix Ec Tab) 40 mg PO 0600 [facility] Last Admin: 02/27/18 06:09 Dose: 40 mg - Labs Labs: 02/27/18 05:50 02/27/18 05:50 PT 13.8 SECONDS (9.4-12.5) H 02/26/18 09:35 INR 1.20 02/26/18 09:35 APTT 33.3 Seconds (25.1-36.5) 02/26/18 09:35 - Constitutional Appears: No Acute Distress - Head Exam Head Exam: ATRAUMATIC, NORMOCEPHALIC - Eye Exam Eye Exam: EOMI, PERRL - ENT Exam ENT Exam: Mucous Membranes Moist - Respiratory Exam Respiratory Exam: Clear to Ausculation Bilateral. absent: Rales, Wheezes - Cardiovascular Exam Cardiovascular Exam: REGULAR RHYTHM, +S1, +S2 - GI/Abdominal Exam GI & Abdominal Exam: Soft. absent: Distended, Tenderness - Back Exam Back Exam: CVA tenderness (R). absent: CVA tenderness (L), paraspinal tenderness, vertebral tenderness - Neurological Exam Neurological Exam: Alert, Awake, Oriented x3 - Psychiatric Exam Psychiatric exam: Normal Mood - Skin Skin Exam: Dry, Warm Assessment and Plan - Assessment and Plan (Free Text) Assessment: 37 F with PMHx of HTN non compliant with her medications (last took her BP medication 4 years ago) presents to the ED with cough, chest pain, and backpain, found to be septic with L lower lobe pneumonia. Sepsis with Left lower lobe pneumonia - Afebrile overnight - WBC increased to 30 - CT chest shows LLL pneumonia - Thoracic and lumbar MRI showed no acute dx - ID consulted - Novak zosyn and added doxy; blood culture Gram + cocci - Septic work up with sputum culture, strep and legionella. Influenza was neg - Duoneb as needed for wheezing and sob - Tylenol as needed for fever - Mucinex as needed for cough - Blood culture showed Gram + cocci - Daily labs R sided flank pain - CT abdomen pelvis w/o contrast - Will follow closely Hx of HTN - EKG and chest CT shows signs of cardiomegaly - Cont Lisinopril - follow up Echo ordered GI/DVT ppx - Protonix and lovenox sc - Heart healthy diet Case and plan was reviewed and discussed with Dr Cheng. <Chaitanya Cheng - Last Filed: 02/28/18 18:00> Objective - Vital Signs/Intake and Output Vital Signs (last 24 hours): Temp Pulse Resp BP Pulse Ox 98.9 F 92 H 20 180/94 H 99 02/28/18 06:00 02/28/18 14:00 02/28/18 12:00 02/28/18 12:12 02/28/18 12:00 Intake and Output: 02/28/18 02/28/18 06:59 18:59 Intake Total 450 Balance 450 - Medications Medications: Current Medications Acetaminophen (Tylenol 325mg Tab) 650 mg PO Q6H PRN PRN Reason: Fever >100.4 F Albuterol/Ipratropium (Duoneb 3 Mg/0.5 Mg (3 Ml) Ud) 3 ml IH [id number] PRN PRN Reason: Shortness of Breath Last Admin: 02/27/18 21:24 Dose: 3 ml Amlodipine Besylate (Norvasc) 5 mg PO DAILY [facility] Last Admin: 02/28/18 12:11 Dose: 5 mg Doxycycline Hyclate (Doryx) 100 mg PO Q12 [facility]; Protocol Last Admin: 02/28/18 12:10 Dose: 100 mg Enoxaparin Sodium (Lovenox) 40 mg SC DAILY [facility]; Protocol Last Admin: 02/28/18 12:10 Dose: Not Given Guaifenesin/Dextromethorphan (Mucinex-Dm 600-30 Mg) 1 tab PO BID [facility] Last Admin: 02/28/18 17:05 Dose: 1 tab Piperacillin Sod/Tazobactam Sod (Zosyn 3.375 In Ns 100ml) 100 mls @ 25 mls/hr IVPB Q8 [facility]; Protocol Stop: 03/05/18 22:01 Last Admin: 02/28/18 14:42 Dose: 25 mls/hr Vancomycin HCl (Vancomycin 1gm) 1 gm in 250 mls @ 167 mls/hr IVPB Q12 [facility]; Protocol Last Admin: 02/28/18 12:12 Dose: 167 mls/hr Ketorolac Tromethamine (Toradol) 15 mg IVP Q4 [facility] Last Admin: 02/28/18 17:05 Dose: 15 mg Lisinopril (Zestril) 20 mg PO DAILY [facility] Last Admin: 02/28/18 12:12 Dose: 20 mg Ondansetron HCl (Zofran Inj) 4 mg IVP Q6H PRN PRN Reason: Nausea/Vomiting Last Admin: 02/28/18 03:25 Dose: 4 mg Pantoprazole Sodium (Protonix Ec Tab) 40 mg PO 0600 [facility] Last Admin: 02/28/18 06:02 Dose: 40 mg - Labs Labs: 02/28/18 06:00 02/28/18 06:00 PT 13.8 SECONDS (9.4-12.5) H 02/26/18 09:35 INR 1.20 02/26/18 09:35 APTT 33.3 Seconds (25.1-36.5) 02/26/18 09:35 Attending/Attestation - Attestation I have personally seen and examined this patient.: Yes I have fully participated in the care of the patient.: Yes I have reviewed all pertinent clinical information, including history, physical exam and plan: Yes Notes (Text): 37 F with PMHx of HTN (non compliant with her medications) here with cough, chest pain, and backpain, found to be septic with L lower lobe pneumonia. Sepsis 2/2 Left lower lobe PNA HTN Right flank pain c/w abx get CT abd/pel to evaluate right flank pain with radiation to the groin c/w current BP meds
--- NOTE | 2018-02-27 14:17 | CT ---
Date of service: 02/27/2018 PROCEDURE: CT Abdomen and Pelvis without intravenous contrast HISTORY: Left lower lobe pneumonia and abdominal pain COMPARISON: February 26, 2018. All CT pulmonary angiogram. TECHNIQUE: Unenhanced. Neither IV nor oral contrast administered Radiation dose: Total exam DLP = 638.26 mGy-cm. This CT exam was performed using one or more of the following dose reduction techniques: Automated exposure control, adjustment of the mA and/or kV according to patient size, and/or use of iterative reconstruction technique. FINDINGS: LOWER THORAX: Redemonstration left lower lobe infiltrate. Incompletely visualized small pericardial effusion. LIVER: Unremarkable. No gross lesion or ductal dilatation. GALLBLADDER AND BILE DUCTS: Unremarkable. PANCREAS: Unremarkable. No gross lesion or ductal dilatation. SPLEEN: Unremarkable. ADRENALS: Unremarkable. No mass. KIDNEYS AND URETERS: Unremarkable. No hydronephrosis. No solid mass. VASCULATURE: Atherosclerotic calcification and mural plaque present. Findings are seen throughout the aorta which is non aneurysmal. BOWEL: Colonic distension. No obstruction. No gross mural thickening. APPENDIX: Unremarkable. Normal appendix. PERITONEUM: Trace free fluid identified in the pelvis/cul de sac. No free air. LYMPH NODES: Unremarkable. No enlarged lymph nodes. BLADDER: Unremarkable. REPRODUCTIVE: Unremarkable. BONES: No acute fracture. OTHER FINDINGS: None. IMPRESSION: Colonic distention without mechanical/obstructing lesion. Redemonstration left lower lobe infiltrate and trace pericardial effusion.
--- NOTE | 2018-02-27 18:35 | CARD ---
APPROVED REPORT Date of service: 02/27/2018 EXAM: Two-dimensional and M-mode echocardiogram with Doppler and color Doppler. INDICATION Hypertension/HCVD CARDIOMEGALY 2D DIMENSIONS Left Atrium (2D)4.2 (1.6-4.0cm)IVSd2.2 (0.7-1.1cm) LVDd4.1 (3.9-5.9cm)PWd1.9 (0.7-1.1cm) LVDs2.5 (2.5-4.0cm)FS (%) 40.0 % LVEF (%)71.1 (>50%) M-Mode DIMENSIONS Aortic Root2.70 (2.2-3.7cm)Aortic Cusp Exc.1.80 (1.5-2.0cm) Aortic Valve AoV Peak Mwjfhbkk637.0cm/Aftab Peak GR.15mmHg Mitral Valve MV E Qwrrqxgt050.0cm/sMV A Mbbvfyac82.2cm/sE/A ratio1.8 TDI E/Lateral E'0.0E/Medial E'0.0 Tricuspid Valve TR Peak [id number]/sRAP [id number] Peak Gr.41mmHg [id number] LEFT VENTRICLE The left ventricle is normal size. There is moderate to severe concentric left ventricular hypertrophy. The left ventricular function is normal. The left ventricular ejection fraction is within the normal range. There is normal LV segmental wall motion. The left ventricular diastolic function is normal. RIGHT VENTRICLE The right ventricle is normal size. There is normal right ventricular wall thickness. The right ventricular systolic function is normal. ATRIA The left atrium is borderline dilated. The right atrium is borderline dilated. AORTIC VALVE The aortic valve is normal in structure. There is no aortic valvular stenosis. MITRAL VALVE The mitral valve is normal in structure. There is no mitral valve regurgitation noted. There is no mitral valve stenosis. TRICUSPID VALVE There is moderate tricuspid regurgitation. There is moderate pulmonary hypertension. PULMONIC VALVE There is mild pulmonic valvular regurgitation. GREAT VESSELS The aortic root is normal in size. PERICARDIAL EFFUSION There is a trace pericardial effusion. <Conclusion> There is moderate to severe concentric left ventricular hypertrophy. The left ventricular function is normal. The left ventricular ejection fraction is within the normal range. There is normal LV segmental wall motion. The left ventricular diastolic function is normal. There is moderate tricuspid regurgitation. There is moderate pulmonary hypertension.
[2018-02-28] MEDS: Pantoprazole 40 mg EC Tab PO SCH (06:02)
[2018-02-28] MEDS: Piperacillin/Tazobact 3.375 gm 100 ML IVPB SCH ×3 (06:03→21:17)
[2018-02-28 06:47] LABS: BASO # 0.02 K/mm3 (0.0-2.0); BASO % 0.1 % (0.0-3.0); EOS # 0.1 (0.0-0.7); EOS % 0.5 % (1.5-5.0); GRAN # 15.66 (1.4-6.5); GRAN % 83.9 % (50.0-68.0); HEMOGLOBIN 10.4 g/dL (12.0-16.0); LYMPH # 1.6 (1.2-3.4); LYMPH % 8.4 % (22.0-35.0); MEAN CELL VOLUME 71.9 fl (80.0-105.0); MEAN CORPUSCULAR HEMOGLOBIN 23.5 pg (25.0-35.0); MEAN CORPUSCULAR HGB CONC 32.7 g/dl (31.0-37.0); MEAN PLATELET VOLUME 10.9 fl (7.0-11.0); MONO # 1.3 (0.1-0.6); MONO % 7.1 % (1.0-6.0); RBC 4.42 10^6/uL (3.5-6.1); RED CELL DISTRIBUTION WIDTH 15.2 % (11.5-14.5); WHITE BLOOD COUNT 18.7 10^3/uL (4.5-11.0)
[2018-02-28 07:08] LABS: ALB/GLOB RATIO 0.7 (1.1-1.8); ALBUMIN 3.3 g/dL (3.0-4.8); ALT/SGPT 15 U/L (7-56); AST/SGOT 24 U/L (14-36); BLOOD UREA NITROGEN 18 mg/dL (7-21); CALCIUM 8.8 mg/dL (8.4-10.5); GFR NON-AFRICAN AMERICAN > 60
--- NOTE | 2018-02-28 08:25 | CP.PCM.PN ---
<Denise Schuster - Last Filed: 02/28/18 13:19> Subjective - Date & Time of Evaluation Date of Evaluation: 02/28/18 Time of Evaluation: 08:15 - Subjective Subjective: ID Progress Note - Dr. Ward Patient seen and examined at bedside. Patient has improved flank/abdominal pain. Pt was tachycardic and hypertensive overnight. Pt is ambulating, voiding freely, and moving bowels regularly. Patient is tolerating po intake. Pt denied fever, chills, shortness of breath, chest pains, abdominal pains, nausea, vomiting, diarrhea, constipation, or dysuria. Objective - Vital Signs/Intake and Output Vital Signs (last 24 hours): Temp Pulse Resp BP Pulse Ox 98.9 F 89 20 160/86 H 98 02/28/18 06:00 02/28/18 06:03 02/28/18 06:00 02/28/18 07:00 02/28/18 06:00 Intake and Output: 02/28/18 02/28/18 06:59 18:59 Intake Total 450 Balance 450 - Medications Medications: Current Medications Acetaminophen (Tylenol 325mg Tab) 650 mg PO Q6H PRN PRN Reason: Fever >100.4 F Albuterol/Ipratropium (Duoneb 3 Mg/0.5 Mg (3 Ml) Ud) 3 ml IH [id number] PRN PRN Reason: Shortness of Breath Last Admin: 02/27/18 21:24 Dose: 3 ml Amlodipine Besylate (Norvasc) 5 mg PO DAILY [facility] Doxycycline Hyclate (Doryx) 100 mg PO Q12 [facility]; Protocol Last Admin: 02/27/18 22:00 Dose: 100 mg Enoxaparin Sodium (Lovenox) 40 mg SC DAILY [facility]; Protocol Last Admin: 02/27/18 11:26 Dose: 40 mg Guaifenesin/Dextromethorphan (Mucinex-Dm 600-30 Mg) 1 tab PO BID [facility] Last Admin: 02/27/18 18:17 Dose: 1 tab Piperacillin Sod/Tazobactam Sod (Zosyn 3.375 In Ns 100ml) 100 mls @ 25 mls/hr IVPB Q8 [facility]; Protocol Stop: 03/05/18 22:01 Last Admin: 02/28/18 06:03 Dose: 25 mls/hr Vancomycin HCl (Vancomycin 1gm) 1 gm in 250 mls @ 167 mls/hr IVPB Q12 [facility]; Protocol Last Admin: 02/27/18 22:12 Dose: 167 mls/hr Ketorolac Tromethamine (Toradol) 15 mg IVP Q4H [facility] Last Admin: 02/28/18 03:20 Dose: 15 mg Lisinopril (Zestril) 20 mg PO DAILY [facility] Ondansetron HCl (Zofran Inj) 4 mg IVP Q6H PRN PRN Reason: Nausea/Vomiting Last Admin: 02/28/18 03:25 Dose: 4 mg Pantoprazole Sodium (Protonix Ec Tab) 40 mg PO 0600 [facility] Last Admin: 02/28/18 06:02 Dose: 40 mg - Labs Labs: 02/28/18 06:00 02/28/18 06:00 PT 13.8 SECONDS (9.4-12.5) H 02/26/18 09:35 INR 1.20 02/26/18 09:35 APTT 33.3 Seconds (25.1-36.5) 02/26/18 09:35 - Constitutional Appears: No Acute Distress - Head Exam Head Exam: ATRAUMATIC, NORMAL INSPECTION, NORMOCEPHALIC - Eye Exam Eye Exam: EOMI, Normal appearance, PERRL Pupil Exam: NORMAL ACCOMODATION, PERRL - ENT Exam ENT Exam: Mucous Membranes Moist, Normal Exam - Respiratory Exam Respiratory Exam: Clear to Ausculation Bilateral, NORMAL BREATHING PATTERN - Cardiovascular Exam Cardiovascular Exam: REGULAR RHYTHM, +S1, +S2. absent: Murmur - GI/Abdominal Exam GI & Abdominal Exam: Soft, Tenderness, Hyperactive Bowel Sounds - Extremities Exam Extremities Exam: Full ROM, Normal Capillary Refill, Normal Inspection. absent: Joint Swelling, Pedal Edema - Neurological Exam Neurological Exam: Alert, Awake, CN II-XII Intact, Normal Gait, Oriented x3 - Psychiatric Exam Psychiatric exam: Normal Affect, Normal Mood - Skin Skin Exam: Dry, Intact, Normal Color, Warm Assessment and Plan - Assessment and Plan (Free Text) Assessment: 37 F with a PMHx of HTN presented to the [facility] ED with complaints of a productive cough x 1 week and associated chest and back discomfort found to be septic with a Left lower lobe pneumonia on Chest CT. CAP GPC chains bacteremia Low back pain leukocytosis - improved HTN Prolonged QTc H/o spinal epidural complication during tobacco abuse cannabis abuse Chest CT reviewed and demonstrated left lower lobe pneumonia, downtrending leukocytosis, elevated ESR, elevated PCT, negative flu, Vancomycin and Zosyn and Doxyccyline for this patient with sepsis due to with lower lobe CAP. Follow up blood, sputum final cx results. PCT trend. Legionella Ag negative. HIV negative, flu negative. MRI of the thoracic spine shows no discitis, osteomyletis. MRI Lumbar spine shows degenerative changes. CT abdomen redemonstrated Lt Lower Lobe PNA. Pending US for trace free fluid in pelvic cul de sac. Will continue to monitor clincally and fu labs and cultures. <Vadim Ward - Last Filed: 02/28/18 21:18> Objective - Vital Signs/Intake and Output Vital Signs (last 24 hours): Temp Pulse Resp BP Pulse Ox 98.4 F 85 20 166/99 H 99 02/28/18 18:00 02/28/18 18:00 02/28/18 18:00 02/28/18 18:00 02/28/18 12:00 Intake and Output: 02/28/18 03/01/18 18:59 06:59 Intake Total 350 Balance 350 - Medications Medications: Current Medications Acetaminophen (Tylenol 325mg Tab) 650 mg PO Q6H PRN PRN Reason: Fever >100.4 F Albuterol/Ipratropium (Duoneb 3 Mg/0.5 Mg (3 Ml) Ud) 3 ml IH [id number] PRN PRN Reason: Shortness of Breath Last Admin: 02/27/18 21:24 Dose: 3 ml Amlodipine Besylate (Norvasc) 5 mg PO DAILY [facility] Last Admin: 02/28/18 12:11 Dose: 5 mg Doxycycline Hyclate (Doryx) 100 mg PO Q12 [facility]; Protocol Last Admin: 02/28/18 12:10 Dose: 100 mg Enoxaparin Sodium (Lovenox) 40 mg SC DAILY [facility]; Protocol Last Admin: 02/28/18 12:10 Dose: Not Given Guaifenesin/Dextromethorphan (Mucinex-Dm 600-30 Mg) 1 tab PO BID [facility] Last Admin: 02/28/18 17:05 Dose: 1 tab Piperacillin Sod/Tazobactam Sod (Zosyn 3.375 In Ns 100ml) 100 mls @ 25 mls/hr IVPB Q8 [facility]; Protocol Stop: 03/05/18 22:01 Last Admin: 02/28/18 14:42 Dose: 25 mls/hr Vancomycin HCl (Vancomycin 1gm) 1 gm in 250 mls @ 167 mls/hr IVPB Q12 [facility]; Protocol Last Admin: 02/28/18 12:12 Dose: 167 mls/hr Ketorolac Tromethamine (Toradol) 15 mg IVP Q4 [facility] Last Admin: 02/28/18 17:05 Dose: 15 mg Lisinopril (Zestril) 20 mg PO DAILY [facility] Last Admin: 02/28/18 12:12 Dose: 20 mg Ondansetron HCl (Zofran Inj) 4 mg IVP Q6H PRN PRN Reason: Nausea/Vomiting Last Admin: 02/28/18 03:25 Dose: 4 mg Pantoprazole Sodium (Protonix Ec Tab) 40 mg PO 0600 [facility] Last Admin: 02/28/18 06:02 Dose: 40 mg - Labs Labs: 02/28/18 06:00 02/28/18 06:00 PT 13.8 SECONDS (9.4-12.5) H 02/26/18 09:35 INR 1.20 02/26/18 09:35 APTT 33.3 Seconds (25.1-36.5) 02/26/18 09:35 Assessment and Plan - Assessment and Plan (Free Text) Assessment: Infectious diseases Attending Physician Attestation Patient seen and examined, discussed with medical doctor nuclear medicine. I have reviewed the patient's history of present illness, past medical, social, personal and family histories, pertinent physical exam findings, course so far in this hospital admission, pertinent laboratory and imaging results. I agree with the above findings, assessment and plan. In addition, will continue Vancomycin, Zosyn and Doxycycline for sepsis due to left lower lobe CAP with Strep bacteremia. Follow up final identification and sensitivities. 2D echo is negative for vegetations. Follow up repeat blood cx. Patient is improving clinically.
[2018-02-28] MEDS: Enoxaparin 40 mg Syringe SC SCH (12:10)
[2018-02-28] MEDS: guaiFENesin-DM 600-30 mg ER Tab PO SCH ×2 (12:11→17:05)
[2018-02-28] MEDS: Vancomycin 1gm in NS 250ml 1 GM/250 ML BAG IVPB SCH ×2 (12:12→21:17)
--- NOTE | 2018-02-28 14:06 | US ---
Date of service: 02/28/2018 HISTORY: Trace fluid in pelvic cul de sac COMPARISON: None available. TECHNIQUE: Transabdominal pelvic ultrasound was performed. FINDINGS: UTERUS: Measures 9.0 x 5.0 x 6.2 cm. Anteverted and bulky. There is a 1.8 x 1.4 x 2.3 cm anterior wall intramural fundal fibroid. ENDOMETRIUM: Measures 4.2 mm in diameter. Unremarkable. CERVIX: No cervical abnormality identified. RIGHT OVARY: Not visualized. LEFT OVARY: Not visualized. FREE FLUID: There is small amount of fluid in the cul de sac. OTHER FINDINGS: None. IMPRESSION: 1.8 x 1.4 x 2.3 cm anterior wall intramural fundal fibroid. Small amount of free fluid in the cul de sac.
--- NOTE | 2018-02-28 15:18 | CP.PCM.PN ---
<Kota Hanks - Last Filed: 02/28/18 15:18> Subjective - Date & Time of Evaluation Date of Evaluation: 02/28/18 Time of Evaluation: 07:30 - Subjective Subjective: Hospitalist Progress Note: Pt seen and examined at bedside. No acute events overnight. Patient c/o some mild R sided flank pain. States that her cough has improved. No other complaints. 12 Point ROS performed and neg other than stated above. Objective - Vital Signs/Intake and Output Vital Signs (last 24 hours): Temp Pulse Resp BP Pulse Ox 98.9 F 86 20 180/94 H 98 02/28/18 06:00 02/28/18 12:12 02/28/18 06:00 02/28/18 12:12 02/28/18 06:00 Intake and Output: 02/28/18 02/28/18 06:59 18:59 Intake Total 450 Balance 450 - Medications Medications: Current Medications Acetaminophen (Tylenol 325mg Tab) 650 mg PO Q6H PRN PRN Reason: Fever >100.4 F Albuterol/Ipratropium (Duoneb 3 Mg/0.5 Mg (3 Ml) Ud) 3 ml IH [id number] PRN PRN Reason: Shortness of Breath Last Admin: 02/27/18 21:24 Dose: 3 ml Amlodipine Besylate (Norvasc) 5 mg PO DAILY [facility] Last Admin: 02/28/18 12:11 Dose: 5 mg Doxycycline Hyclate (Doryx) 100 mg PO Q12 [facility]; Protocol Last Admin: 02/28/18 12:10 Dose: 100 mg Enoxaparin Sodium (Lovenox) 40 mg SC DAILY [facility]; Protocol Last Admin: 02/28/18 12:10 Dose: Not Given Guaifenesin/Dextromethorphan (Mucinex-Dm 600-30 Mg) 1 tab PO BID [facility] Last Admin: 02/28/18 12:11 Dose: 1 tab Piperacillin Sod/Tazobactam Sod (Zosyn 3.375 In Ns 100ml) 100 mls @ 25 mls/hr IVPB Q8 [facility]; Protocol Stop: 03/05/18 22:01 Last Admin: 02/28/18 14:42 Dose: 25 mls/hr Vancomycin HCl (Vancomycin 1gm) 1 gm in 250 mls @ 167 mls/hr IVPB Q12 [facility]; Protocol Last Admin: 02/28/18 12:12 Dose: 167 mls/hr Ketorolac Tromethamine (Toradol) 15 mg IVP Q4 [facility] Last Admin: 02/28/18 12:11 Dose: 15 mg Lisinopril (Zestril) 20 mg PO DAILY [facility] Last Admin: 02/28/18 12:12 Dose: 20 mg Ondansetron HCl (Zofran Inj) 4 mg IVP Q6H PRN PRN Reason: Nausea/Vomiting Last Admin: 02/28/18 03:25 Dose: 4 mg Pantoprazole Sodium (Protonix Ec Tab) 40 mg PO 0600 [facility] Last Admin: 02/28/18 06:02 Dose: 40 mg - Labs Labs: 02/28/18 06:00 02/28/18 06:00 PT 13.8 SECONDS (9.4-12.5) H 02/26/18 09:35 INR 1.20 02/26/18 09:35 APTT 33.3 Seconds (25.1-36.5) 02/26/18 09:35 - Constitutional Appears: No Acute Distress - Head Exam Head Exam: ATRAUMATIC, NORMOCEPHALIC - Eye Exam Eye Exam: EOMI - ENT Exam ENT Exam: Mucous Membranes Moist - Respiratory Exam Respiratory Exam: Clear to Ausculation Bilateral. absent: Rales, Wheezes - Cardiovascular Exam Cardiovascular Exam: REGULAR RHYTHM, +S1, +S2 - GI/Abdominal Exam GI & Abdominal Exam: Soft. absent: Tenderness - Extremities Exam Extremities Exam: absent: Calf Tenderness, Pedal Edema - Neurological Exam Neurological Exam: Alert, Awake, Oriented x3 - Psychiatric Exam Psychiatric exam: Normal Mood - Skin Skin Exam: Dry, Warm Assessment and Plan - Assessment and Plan (Free Text) Assessment: 37 F with PMHx of HTN non compliant with her medications (last took her BP medication 4 years ago) presents to the ED with cough, chest pain, and backpain, found to be septic with L lower lobe pneumonia. Sepsis with Left lower lobe pneumonia - WBC feb 30--> 18 - CT chest shows LLL pneumonia - Thoracic and lumbar MRI showed no acute dx - ID consulted - Novak zosyn and added doxy; blood culture Gram + cocci - Septic work up with sputum culture, strep and legionella. Influenza was neg - Duoneb as needed for wheezing and sob - Tylenol as needed for fever - Mucinex as needed for cough - Blood culture showed Gram + cocci awaiting final results - Daily labs R sided flank pain - CT abdomen pelvis w/o contrast - colonic distention - Pelvic US ordered awaiting read - Will follow closely Hx of HTN - EKG and chest CT shows signs of cardiomegaly - Cont Lisinopril and started amlodipine - follow up Echo ordered GI/DVT ppx - Protonix and lovenox sc - Heart healthy diet Case and plan was reviewed and discussed with Dr Cheng. <Chaitanya Cheng - Last Filed: 02/28/18 18:08> Objective - Vital Signs/Intake and Output Vital Signs (last 24 hours): Temp Pulse Resp BP Pulse Ox 98.9 F 92 H 20 180/94 H 99 02/28/18 06:00 02/28/18 14:00 02/28/18 12:00 02/28/18 12:12 02/28/18 12:00 Intake and Output: 02/28/18 02/28/18 06:59 18:59 Intake Total 450 Balance 450 - Medications Medications: Current Medications Acetaminophen (Tylenol 325mg Tab) 650 mg PO Q6H PRN PRN Reason: Fever >100.4 F Albuterol/Ipratropium (Duoneb 3 Mg/0.5 Mg (3 Ml) Ud) 3 ml IH [id number] PRN PRN Reason: Shortness of Breath Last Admin: 02/27/18 21:24 Dose: 3 ml Amlodipine Besylate (Norvasc) 5 mg PO DAILY [facility] Last Admin: 02/28/18 12:11 Dose: 5 mg Doxycycline Hyclate (Doryx) 100 mg PO Q12 [facility]; Protocol Last Admin: 02/28/18 12:10 Dose: 100 mg Enoxaparin Sodium (Lovenox) 40 mg SC DAILY [facility]; Protocol Last Admin: 02/28/18 12:10 Dose: Not Given Guaifenesin/Dextromethorphan (Mucinex-Dm 600-30 Mg) 1 tab PO BID [facility] Last Admin: 02/28/18 17:05 Dose: 1 tab Piperacillin Sod/Tazobactam Sod (Zosyn 3.375 In Ns 100ml) 100 mls @ 25 mls/hr IVPB Q8 [facility]; Protocol Stop: 03/05/18 22:01 Last Admin: 02/28/18 14:42 Dose: 25 mls/hr Vancomycin HCl (Vancomycin 1gm) 1 gm in 250 mls @ 167 mls/hr IVPB Q12 [facility]; Protocol Last Admin: 02/28/18 12:12 Dose: 167 mls/hr Ketorolac Tromethamine (Toradol) 15 mg IVP Q4 [facility] Last Admin: 02/28/18 17:05 Dose: 15 mg Lisinopril (Zestril) 20 mg PO DAILY [facility] Last Admin: 02/28/18 12:12 Dose: 20 mg Ondansetron HCl (Zofran Inj) 4 mg IVP Q6H PRN PRN Reason: Nausea/Vomiting Last Admin: 02/28/18 03:25 Dose: 4 mg Pantoprazole Sodium (Protonix Ec Tab) 40 mg PO 0600 [facility] Last Admin: 02/28/18 06:02 Dose: 40 mg - Labs Labs: 02/28/18 06:00 02/28/18 06:00 PT 13.8 SECONDS (9.4-12.5) H 02/26/18 09:35 INR 1.20 02/26/18 09:35 APTT 33.3 Seconds (25.1-36.5) 02/26/18 09:35 Attending/Attestation - Attestation I have personally seen and examined this patient.: Yes I have fully participated in the care of the patient.: Yes I have reviewed all pertinent clinical information, including history, physical exam and plan: Yes Notes (Text): 37 F with PMHx of HTN (non compliant with her medications) here with cough, c hest pain, and backpain, found to be septic with L lower lobe pneumonia. Sepsis 2/2 Left lower lobe PNA HTN Right flank pain c/w abx CT abd/pel showed free fluid in the pelvic region, will get a pelvic US for further eval. ? ruptured cyst c/w current BP meds
[2018-02-28] MEDS ORDERED: POLYETHYLENE GLYCOL 3350 17 GM/Dose PACKET PO ONE (20:03)
[2018-02-28 22:25] LABS: SOURCE SERUM
[2018-03-01] MEDS: Piperacillin/Tazobact 3.375 gm 100 ML IVPB SCH (06:37)
[2018-03-01] MEDS: Pantoprazole 40 mg EC Tab PO SCH (06:38)
[2018-03-01 07:01] LABS: BASO # 0.03 K/mm3 (0.0-2.0); BASO % 0.3 % (0.0-3.0); EOS # 0.2 (0.0-0.7); EOS % 1.6 % (1.5-5.0); GRAN # 8.09 (1.4-6.5); GRAN % 74.2 % (50.0-68.0); HEMOGLOBIN 10.4 g/dL (12.0-16.0); LYMPH # 1.5 (1.2-3.4); LYMPH % 13.4 % (22.0-35.0); MEAN CELL VOLUME 72.5 fl (80.0-105.0); MEAN CORPUSCULAR HEMOGLOBIN 23.4 pg (25.0-35.0); MEAN CORPUSCULAR HGB CONC 32.3 g/dl (31.0-37.0); MONO # 1.1 (0.1-0.6); MONO % 10.5 % (1.0-6.0); RBC 4.44 10^6/uL (3.5-6.1); RED CELL DISTRIBUTION WIDTH 15.1 % (11.5-14.5); WHITE BLOOD COUNT 10.9 10^3/uL (4.5-11.0)
[2018-03-01 07:26] LABS: ALB/GLOB RATIO 0.7 (1.1-1.8); ALBUMIN 3.2 g/dL (3.0-4.8); ALT/SGPT 17 U/L (7-56); AST/SGOT 29 U/L (14-36); BLOOD UREA NITROGEN 17 mg/dL (7-21); CALCIUM 8.5 mg/dL (8.4-10.5); GFR NON-AFRICAN AMERICAN > 60
--- NOTE | 2018-03-01 08:39 | PN ---
DATE: 03/01/2018 SUBJECTIVE: The patient is in bed, in no acute distress, nontoxic. PHYSICAL EXAMINATION: VITAL SIGNS: Temperature is 99, blood pressure is 182/115, respiratory rate of 18. HEENT: Examination of HEENT is unremarkable. NECK: Supple. LUNGS: Have decreased breath sounds. HEART: Normal S1, S2. ABDOMEN: Soft. LABORATORY EXAMINATION: Reveals a white count is 10,000, hemoglobin of 10, platelets of 239. Chemistries reveals a BUN of 17, creatinine of 0.8. Procalcitonin is 4.005. Urinalysis is unremarkable and toxicology is positive for opiates and cannabinoids and HIV is negative. Influenza is negative. Urine Legionella antigen is negative and microbiology reveals the blood cultures are positive for gram-positive cocci. Negative for Enterococcus. The patient had a CT scan of the abdomen which showed colonic distention without mechanical obstruction lesion, left lower lobe infiltrates with trace of pericardial effusion. The patient also had a thoracic spine MRI. No evidence of epidural abscess and the patient also had an MRI of the lumbar spine which is the results are noted. No evidence of epidural abscess is degenerated for L5 and S1 disease. CT scan of the chest, its consolidation of left lower lobe. Dr. Hernandez on which progress note is reviewed and appreciated. ASSESSMENT/PLAN A 37-year-old female seen earlier this morning, she is still having significant pain, back pain, appears to have side pain, pleuritic pain and abdominal pain with pulmonary symptoms. The patient initially was admitted with temperature of 102.8 and heart rate of 98 and respiratory rate of 20 with white count of 26,000 now with an elevated procalcitonin. Patient with sepsis with a gram-positive cocci bacteremia, probable Streptococcus bacteremia with community-acquired pneumonia on CT scan, on doxycycline and vancomycin and Zosyn. Awaiting for identification and sensitivity. The patient had an echo on the . No vegetations were mentioned by Dr. Familia Dickerson. We will continue present course pending identification and sensitivity. We will make adjustments of the antibiotics most likely, will not need doxy or vanco or Zosyn, switch to ceftriaxone 2 g daily, pending identification and sensitivity of the gram-positive cocci in chains, most likely strep pneumonia, bacteremia with community-acquired pneumonia with sepsis, presenting with severe back pain. The patient should have an HIV test at the age of 37, and the strep pneumonia bacteremia which is reported to be negative at the fourth generation test and should have multiple myeloma workup and a patient who is anemic with a low MCV, hemoglobin of 10. We will follow with you. Faraz Samuels MD
[2018-03-01] MEDS ORDERED: Morphine 2 mg/ml ISec IVP STA (08:41)
[2018-03-01] MEDS: guaiFENesin-DM 600-30 mg ER Tab PO SCH ×2 (09:56→17:00)
[2018-03-01] MEDS: Vancomycin 1gm in NS 250ml 1 GM/250 ML BAG IVPB SCH (09:56)
[2018-03-01] MEDS: Enoxaparin 40 mg Syringe SC SCH (09:58)
--- NOTE | 2018-03-01 10:50 | US ---
Date of service: 03/01/2018 PROCEDURE: Ultrasonography renal arterial evaluation HISTORY: Persistant HTN, r/o stenosis COMPARISON: None available. TECHNIQUE: Real-time ultrasonography evaluation of the renal arteries were performed. Comparison is made to the aorta. FINDINGS: AORTA: RIGHT RENAL ARTERY: The right kidney measures 12.9 cm in length. The right renal cortex is normal in thickness but echogenic. There is no evidence of hydronephrosis or solid renal mass. The peak systolic velocity in the proximal right main renal artery is 141 cm/second. This corresponds to a 0-49 percent right main renal artery stenosis. LEFT RENAL ARTERY: The left kidney measures 12.3 cm in length. Once again the renal cortex is normal in thickness and slightly echogenic. There is no evidence of hydronephrosis or solid renal mass. The peak systolic velocity in the main left renal artery is 156 cm/second. This corresponds to a 0-49 percent left main renal artery stenosis. IMPRESSION: No sonographic evidence of significant renal artery stenosis. Visualization of the main renal arteries is adequate. The renal parenchyma is normal in thickness but somewhat echogenic. No hydronephrosis.
[2018-03-01] MEDS: cefTRIAXone 2 GM IN NS 2 GM/100 ML BAG IVPB SCH (14:41)
--- NOTE | 2018-03-01 15:58 | CP.PCM.PN ---
<Kota Hanks - Last Filed: 03/01/18 15:49> Subjective - Date & Time of Evaluation Date of Evaluation: 03/01/18 Time of Evaluation: 09:00 - Subjective Subjective: Hospitalist Progress Note: Pt seen and examined at bedside. No acute events overnight. Patient still c/o of R sided flank pain radiating to groin. Cough has improved. No other complaints. 12 Point ROS performed and neg other than stated above. Objective - Vital Signs/Intake and Output Vital Signs (last 24 hours): Temp Pulse Resp BP Pulse Ox 98.5 F 79 20 172/113 H 20 L 03/01/18 12:00 03/01/18 12:00 03/01/18 12:00 03/01/18 12:00 03/01/18 06:00 Intake and Output: 03/01/18 03/01/18 06:59 18:59 Intake Total 950 Output Total 0 Balance 950 - Medications Medications: Current Medications Acetaminophen (Tylenol 325mg Tab) 650 mg PO Q6H PRN PRN Reason: Fever >100.4 F Albuterol/Ipratropium (Duoneb 3 Mg/0.5 Mg (3 Ml) Ud) 3 ml IH [id number] PRN PRN Reason: Shortness of Breath Last Admin: 02/27/18 21:24 Dose: 3 ml Amlodipine Besylate (Norvasc) 10 mg PO DAILY [facility] Last Admin: 03/01/18 09:56 Dose: 10 mg Cyclobenzaprine HCl (Flexeril) 10 mg PO TID PRN PRN Reason: Muscle spasm Last Admin: 03/01/18 14:45 Dose: 10 mg Enoxaparin Sodium (Lovenox) 40 mg SC DAILY [facility]; Protocol Last Admin: 03/01/18 09:58 Dose: Not Given Guaifenesin/Dextromethorphan (Mucinex-Dm 600-30 Mg) 1 tab PO BID [facility] Last Admin: 03/01/18 09:56 Dose: 1 tab Ceftriaxone Sodium (Rocephin 2 Gm Ivpb) 2 gm in 100 mls @ 100 mls/hr IVPB DAILY [facility]; Protocol Stop: 03/10/18 12:56 Last Admin: 03/01/18 14:41 Dose: 100 mls/hr Ketorolac Tromethamine (Toradol) 15 mg IVP Q4 [facility] Last Admin: 12/13/18 11:46 Dose: 15 mg Lisinopril (Zestril) 40 mg PO DAILY [facility] Last Admin: 03/01/18 10:01 Dose: 40 mg Ondansetron HCl (Zofran Inj) 4 mg IVP Q6H PRN PRN Reason: Nausea/Vomiting Last Admin: 03/01/18 09:11 Dose: 4 mg Pantoprazole Sodium (Protonix Ec Tab) 40 mg PO 0600 [facility] Last Admin: 03/01/18 06:38 Dose: 40 mg - Labs Labs: 03/01/18 06:20 03/01/18 06:20 PT 13.8 SECONDS (9.4-12.5) H 02/26/18 09:35 INR 1.20 02/26/18 09:35 APTT 33.3 Seconds (25.1-36.5) 02/26/18 09:35 - Constitutional Appears: No Acute Distress - Head Exam Head Exam: ATRAUMATIC, NORMOCEPHALIC - Eye Exam Eye Exam: EOMI, PERRL - ENT Exam ENT Exam: Mucous Membranes Moist - Respiratory Exam Respiratory Exam: Clear to Ausculation Bilateral. absent: Rales, Wheezes - Cardiovascular Exam Cardiovascular Exam: REGULAR RHYTHM, +S1, +S2 - GI/Abdominal Exam GI & Abdominal Exam: Soft. absent: Distended, Tenderness - Extremities Exam Extremities Exam: absent: Calf Tenderness, Pedal Edema - Neurological Exam Neurological Exam: Alert, Awake, Oriented x3 - Psychiatric Exam Psychiatric exam: Normal Mood - Skin Skin Exam: Dry, Intact, Warm Assessment and Plan - Assessment and Plan (Free Text) Assessment: 37 F with PMHx of HTN non compliant with her medications (last took her BP medication 4 years ago) presents to the ED with cough, chest pain, and backpain, found to be septic with L lower lobe pneumonia. Sepsis with Left lower lobe pneumonia - WBC dec 30--> 18--> 10.9 - CT chest shows LLL pneumonia - Thoracic and lumbar MRI showed no acute dx - ID consulted - Started on Rocephin - Patient bacteremic with strep pneumonia, Recommend getting multiple myeloma work up - F/u MM work up - Septic work up with sputum culture, strep and legionella thus far neg . Influenza was neg - Duoneb as needed for wheezing and sob - Tylenol as needed for fever - Mucinex as needed for cough - Blood culture showed strep pneumonia - Daily labs R sided flank pain - CT abdomen pelvis w/o contrast - colonic distention - Pelvic US - no acute findings - Started flexaril - Will follow closely Hx of HTN - EKG and chest CT shows signs of cardiomegaly - Inc Lisinopril and amlodipine - Renal US- no renal a stenosis - renin and aldosterone ordered - follow up Echo showed GI/DVT ppx - Protonix and lovenox sc - Heart healthy diet Case and plan was reviewed and discussed with Dr Church <Luciano Church - Last Filed: 03/01/18 18:30> Objective - Vital Signs/Intake and Output Vital Signs (last 24 hours): Temp Pulse Resp BP Pulse Ox 98.7 F 78 18 171/112 H 20 L 03/01/18 18:00 03/01/18 18:00 03/01/18 18:00 03/01/18 18:00 03/01/18 06:00 Intake and Output: 03/01/18 03/01/18 06:59 18:59 Intake Total 950 425 Output Total 0 Balance 950 425 - Medications Medications: Current Medications Acetaminophen (Tylenol 325mg Tab) 650 mg PO Q6H PRN PRN Reason: Fever >100.4 F Albuterol/Ipratropium (Duoneb 3 Mg/0.5 Mg (3 Ml) Ud) 3 ml IH [id number] PRN PRN Reason: Shortness of Breath Last Admin: 02/27/18 21:24 Dose: 3 ml Amlodipine Besylate (Norvasc) 10 mg PO DAILY [facility] Last Admin: 03/01/18 09:56 Dose: 10 mg Cyclobenzaprine HCl (Flexeril) 10 mg PO TID PRN PRN Reason: Muscle spasm Last Admin: 03/01/18 14:45 Dose: 10 mg Enoxaparin Sodium (Lovenox) 40 mg SC DAILY [facility]; Protocol Last Admin: 03/01/18 09:58 Dose: Not Given Guaifenesin/Dextromethorphan (Mucinex-Dm 600-30 Mg) 1 tab PO BID [facility] Last Admin: 03/01/18 17:00 Dose: 1 tab Hydrochlorothiazide (Microzide) 12.5 mg PO DAILY [facility] Last Admin: 03/01/18 17:40 Dose: 12.5 mg Ceftriaxone Sodium (Rocephin 2 Gm Ivpb) 2 gm in 100 mls @ 100 mls/hr IVPB DAILY [facility]; Protocol Stop: 03/10/18 12:56 Last Admin: 03/01/18 14:41 Dose: 100 mls/hr Ketorolac Tromethamine (Toradol) 15 mg IVP Q4 [facility] Last Admin: 03/01/18 16:53 Dose: 15 mg Lisinopril (Zestril) 40 mg PO DAILY [facility] Last Admin: 03/01/18 10:01 Dose: 40 mg Ondansetron HCl (Zofran Inj) 4 mg IVP Q6H PRN PRN Reason: Nausea/Vomiting Last Admin: 03/01/18 09:11 Dose: 4 mg Pantoprazole Sodium (Protonix Ec Tab) 40 mg PO 0600 [facility] Last Admin: 03/01/18 06:38 Dose: 40 mg - Labs Labs: 03/01/18 06:20 03/01/18 06:20 PT 13.8 SECONDS (9.4-12.5) H 02/26/18 09:35 INR 1.20 02/26/18 09:35 APTT 33.3 Seconds (25.1-36.5) 02/26/18 09:35 Attending/Attestation - Attestation I have personally seen and examined this patient.: Yes I have fully participated in the care of the patient.: Yes I have reviewed all pertinent clinical information, including history, physical exam and plan: Yes
[2018-03-02] MEDS: Pantoprazole 40 mg EC Tab PO SCH (06:39)
[2018-03-02 07:07] LABS: ALB/GLOB RATIO 0.7 (1.1-1.8); ALBUMIN 3.1 g/dL (3.0-4.8); ALT/SGPT 14 U/L (7-56); AST/SGOT 25 U/L (14-36); BLOOD UREA NITROGEN 13 mg/dL (7-21); CALCIUM 8.5 mg/dL (8.4-10.5); GFR NON-AFRICAN AMERICAN > 60
[2018-03-02 07:10] LABS: BASO # 0.03 K/mm3 (0.0-2.0); BASO % 0.3 % (0.0-3.0); EOS # 0.2 (0.0-0.7); EOS % 2.3 % (1.5-5.0); GRAN # 6.58 (1.4-6.5); HEMOGLOBIN 10.3 g/dL (12.0-16.0); LYMPH # 1.6 (1.2-3.4); LYMPH % 16.5 % (22.0-35.0); MEAN CELL VOLUME 72.3 fl (80.0-105.0); MEAN CORPUSCULAR HGB CONC 31.8 g/dl (31.0-37.0); MEAN PLATELET VOLUME 10.8 fl (7.0-11.0); MONO # 1.1 (0.1-0.6); MONO % 11.9 % (1.0-6.0); RBC 4.48 10^6/uL (3.5-6.1); WHITE BLOOD COUNT 9.5 10^3/uL (4.5-11.0)
[2018-03-02] MEDS ORDERED: Potassium Chloride 40 mEq/30 ml LIQ UD PO STA (07:14)
[2018-03-02] MEDS: guaiFENesin-DM 600-30 mg ER Tab PO SCH ×2 (09:16→17:28)
[2018-03-02] MEDS: cefTRIAXone 2 GM IN NS 2 GM/100 ML BAG IVPB SCH (09:17)
[2018-03-02] MEDS: Enoxaparin 40 mg Syringe SC SCH (09:18)
[2018-03-02 12:32] LABS: COMPLEMENT C4 17.8 mg/dL (14.0-44.0)
--- NOTE | 2018-03-02 14:22 | CP.PCM.PN ---
<Denise Schuster - Last Filed: 03/02/18 14:16> Subjective - Date & Time of Evaluation Date of Evaluation: 03/02/18 Time of Evaluation: 08:00 - Subjective Subjective: ID Progress Note - Dr. Ward Patient seen and examined at bedside. Patient has improved flank/abdominal pain. Cough has improved. Pt is ambulating, voiding freely, and moving bowels regularly. Patient is tolerating po intake. Pt denied fever, chills, shortness of breath, chest pains, abdominal pains, nausea, vomiting, diarrhea, constipation, or dysuria. Objective - Vital Signs/Intake and Output Vital Signs (last 24 hours): Temp Pulse Resp BP Pulse Ox 97.7 F 80 20 162/117 H 100 03/02/18 12:00 03/02/18 13:12 03/02/18 12:00 03/02/18 13:12 03/02/18 06:00 Intake and Output: 03/02/18 03/02/18 06:59 18:59 Intake Total 1840 Output Total 1000 Balance 840 - Medications Medications: Current Medications Acetaminophen (Tylenol 325mg Tab) 650 mg PO Q6H PRN PRN Reason: Fever >100.4 F Albuterol/Ipratropium (Duoneb 3 Mg/0.5 Mg (3 Ml) Ud) 3 ml IH [id number] PRN PRN Reason: Shortness of Breath Last Admin: 02/27/18 21:24 Dose: 3 ml Amlodipine Besylate (Norvasc) 10 mg PO DAILY [facility] Last Admin: 03/02/18 09:17 Dose: 10 mg Cyclobenzaprine HCl (Flexeril) 10 mg PO TID PRN PRN Reason: Muscle spasm Last Admin: 03/02/18 09:18 Dose: 10 mg Enoxaparin Sodium (Lovenox) 40 mg SC DAILY [facility]; Protocol Last Admin: 03/02/18 09:18 Dose: 40 mg Guaifenesin/Dextromethorphan (Mucinex-Dm 600-30 Mg) 1 tab PO BID [facility] Last Admin: 03/02/18 09:16 Dose: 1 tab Hydralazine HCl (Apresoline) 25 mg PO TID [facility] Last Admin: 03/02/18 13:12 Dose: 25 mg Hydrochlorothiazide (Microzide) 12.5 mg PO BID [facility] Last Admin: 12/14/18 09:20 Dose: 12.5 mg Ceftriaxone Sodium (Rocephin 2 Gm Ivpb) 2 gm in 100 mls @ 100 mls/hr IVPB DAILY [facility]; Protocol Stop: 03/10/18 12:56 Last Admin: 03/02/18 09:17 Dose: 100 mls/hr Ketorolac Tromethamine (Toradol) 15 mg IVP Q4 [facility] Last Admin: 03/02/18 08:06 Dose: 15 mg Lisinopril (Zestril) 40 mg PO DAILY [facility] Last Admin: 03/02/18 09:17 Dose: 40 mg Ondansetron HCl (Zofran Inj) 4 mg IVP Q6H PRN PRN Reason: Nausea/Vomiting Last Admin: 03/01/18 09:11 Dose: 4 mg Pantoprazole Sodium (Protonix Ec Tab) 40 mg PO 0600 [facility] Last Admin: 03/02/18 06:39 Dose: 40 mg - Labs Labs: 03/02/18 06:00 03/02/18 06:00 PT 13.8 SECONDS (9.4-12.5) H 02/26/18 09:35 INR 1.20 02/26/18 09:35 APTT 33.3 Seconds (25.1-36.5) 02/26/18 09:35 - Constitutional Appears: No Acute Distress - Head Exam Head Exam: ATRAUMATIC, NORMAL INSPECTION, NORMOCEPHALIC - Eye Exam Eye Exam: EOMI, Normal appearance, PERRL Pupil Exam: NORMAL ACCOMODATION, PERRL - ENT Exam ENT Exam: Mucous Membranes Moist, Normal Exam - Respiratory Exam Respiratory Exam: Clear to Ausculation Bilateral, NORMAL BREATHING PATTERN - Cardiovascular Exam Cardiovascular Exam: REGULAR RHYTHM, +S1, +S2. absent: Murmur - GI/Abdominal Exam GI & Abdominal Exam: Soft, Normal Bowel Sounds. absent: Tenderness - Extremities Exam Extremities Exam: Full ROM, Normal Capillary Refill, Normal Inspection. absent: Joint Swelling, Pedal Edema - Back Exam Back Exam: NORMAL INSPECTION - Neurological Exam Neurological Exam: Alert, Awake, CN II-XII Intact, Normal Gait, Oriented x3 - Psychiatric Exam Psychiatric exam: Normal Affect, Normal Mood - Skin Skin Exam: Dry, Intact, Normal Color, Warm Assessment and Plan - Assessment and Plan (Free Text) Assessment: 37 F with a PMHx of HTN presented to the [facility] ED with complaints of a productive cough x 1 week and associated chest and back discomfort found to be septic with a Left lower lobe pneumonia on Chest CT. CAP Strep pneumo bacteremia Low back pain leukocytosis - resolved HTN Prolonged QTc H/o spinal epidural complication during tobacco abuse cannabis abuse left lower lobe pneumonia on resolved leukocytosis follow up blood cx negative, MM workup, HIV negative yeast in sputum, no sx, risk factors, no dysphagia Can be DC with Levaquin 750mg daily x 7 days Will continue to monitor clinically <Vadim Ward S - Last Filed: 03/02/18 21:22> Objective - Vital Signs/Intake and Output Vital Signs (last 24 hours): Temp Pulse Resp BP Pulse Ox 97.1 F L 88 21 166/116 H 100 03/02/18 18:45 03/02/18 18:45 03/02/18 18:45 03/02/18 18:45 03/02/18 06:00 - Medications Medications: Current Medications Acetaminophen (Tylenol 325mg Tab) 650 mg PO Q6H PRN PRN Reason: Fever >100.4 F Albuterol/Ipratropium (Duoneb 3 Mg/0.5 Mg (3 Ml) Ud) 3 ml IH [id number] PRN PRN Reason: Shortness of Breath Last Admin: 18 21:24 Dose: 3 ml Amlodipine Besylate (Norvasc) 10 mg PO DAILY [facility] Last Admin: 03/02/18 09:17 Dose: 10 mg Cyclobenzaprine HCl (Flexeril) 10 mg PO TID PRN PRN Reason: Muscle spasm Last Admin: 03/02/18 17:28 Dose: 10 mg Enoxaparin Sodium (Lovenox) 40 mg SC DAILY [facility]; Protocol Last Admin: 03/02/18 09:18 Dose: 40 mg Guaifenesin/Dextromethorphan (Mucinex-Dm 600-30 Mg) 1 tab PO BID [facility] Last Admin: 03/02/18 17:28 Dose: 1 tab Hydralazine HCl (Apresoline) 25 mg PO TID [facility] Last Admin: 03/02/18 17:30 Dose: 25 mg Hydrochlorothiazide (Microzide) 12.5 mg PO BID [facility] Last Admin: 03/02/18 17:31 Dose: 12.5 mg Ceftriaxone Sodium (Rocephin 2 Gm Ivpb) 2 gm in 100 mls @ 100 mls/hr IVPB DAILY [facility]; Protocol Stop: 03/10/18 12:56 Last Admin: 03/02/18 09:17 Dose: 100 mls/hr Ketorolac Tromethamine (Toradol) 15 mg IVP Q4 [facility] Last Admin: 03/02/18 16:19 Dose: 15 mg Lisinopril (Zestril) 40 mg PO DAILY [facility] Last Admin: 03/02/18 09:17 Dose: 40 mg Ondansetron HCl (Zofran Inj) 4 mg IVP Q6H PRN PRN Reason: Nausea/Vomiting Last Admin: 03/01/18 09:11 Dose: 4 mg Pantoprazole Sodium (Protonix Ec Tab) 40 mg PO 0600 [facility] Last Admin: 03/02/18 06:39 Dose: 40 mg - Labs Labs: 03/02/18 06:00 03/02/18 06:00 PT 13.8 SECONDS (9.4-12.5) H 02/26/18 09:35 INR 1.20 02/26/18 09:35 APTT 33.3 Seconds (25.1-36.5) 02/26/18 09:35 Assessment and Plan - Assessment and Plan (Free Text) Assessment: Infectious diseases Attending Physician Attestation Patient seen and examined, discussed with medical surgical tech. I have reviewed the patient's history of present illness, past medical, social, personal and family histories, pertinent physical exam findings, course so far in this hospital admission, pertinent laboratory and imaging results. I agree with the above f indings, assessment and plan. In addition, will continue Rocephin for sepsis due to Strep pneumo left lower lobe CAP. Can switch to PO Levaquin for another 7 days.
--- NOTE | 2018-03-02 15:33 | CP.PCM.PN ---
<Kota Hanks - Last Filed: 03/02/18 15:39> Subjective - Date & Time of Evaluation Date of Evaluation: 03/02/18 Time of Evaluation: 07:45 - Subjective Subjective: Hospitalist Progress Note: Pt seen and examined at bedside. No acute events overnight. Patient states that her cough has improved. Her blood pressure is still elevated with systolics 16- 180's. No other complaints. 12 Point ROS performed and neg other than stated above. Objective - Vital Signs/Intake and Output Vital Signs (last 24 hours): Temp Pulse Resp BP Pulse Ox 97.7 F 80 20 156/107 H 100 03/02/18 12:00 03/02/18 13:12 03/02/18 12:00 03/02/18 14:23 03/02/18 06:00 Intake and Output: 03/02/18 03/02/18 06:59 18:59 Intake Total 1840 Output Total 1000 Balance 840 - Medications Medications: Current Medications Acetaminophen (Tylenol 325mg Tab) 650 mg PO Q6H PRN PRN Reason: Fever >100.4 F Albuterol/Ipratropium (Duoneb 3 Mg/0.5 Mg (3 Ml) Ud) 3 ml IH [id number] PRN PRN Reason: Shortness of Breath Last Admin: 02/27/18 21:24 Dose: 3 ml Amlodipine Besylate (Norvasc) 10 mg PO DAILY [facility] Last Admin: 03/02/18 09:17 Dose: 10 mg Cyclobenzaprine HCl (Flexeril) 10 mg PO TID PRN PRN Reason: Muscle spasm Last Admin: 03/02/18 09:18 Dose: 10 mg Enoxaparin Sodium (Lovenox) 40 mg SC DAILY [facility]; Protocol Last Admin: 03/02/18 09:18 Dose: 40 mg Guaifenesin/Dextromethorphan (Mucinex-Dm 600-30 Mg) 1 tab PO BID [facility] Last Admin: 03/02/18 09:16 Dose: 1 tab Hydralazine HCl (Apresoline) 25 mg PO TID [facility] Last Admin: 03/02/18 13:12 Dose: 25 mg Hydrochlorothiazide (Microzide) 12.5 mg PO BID [facility] Last Admin: 03/02/18 09:20 Dose: 12.5 mg Ceftriaxone Sodium (Rocephin 2 Gm Ivpb) 2 gm in 100 mls @ 100 mls/hr IVPB DAILY [facility]; Protocol Stop: 03/10/18 12:56 Last Admin: 03/02/18 09:17 Dose: 100 mls/hr Ketorolac Tromethamine (Toradol) 15 mg IVP Q4 [facility] Last Admin: 03/02/18 08:06 Dose: 15 mg Lisinopril (Zestril) 40 mg PO DAILY [facility] Last Admin: 03/02/18 09:17 Dose: 40 mg Ondansetron HCl (Zofran Inj) 4 mg IVP Q6H PRN PRN Reason: Nausea/Vomiting Last Admin: 03/01/18 09:11 Dose: 4 mg Pantoprazole Sodium (Protonix Ec Tab) 40 mg PO 0600 [facility] Last Admin: 03/02/18 06:39 Dose: 40 mg - Labs Labs: 03/02/18 06:00 03/02/18 06:00 PT 13.8 SECONDS (9.4-12.5) H 02/26/18 09:35 INR 1.20 02/26/18 09:35 APTT 33.3 Seconds (25.1-36.5) 02/26/18 09:35 - Constitutional Appears: No Acute Distress - Head Exam Head Exam: ATRAUMATIC, NORMOCEPHALIC - Eye Exam Eye Exam: EOMI, PERRL Pupil Exam: NORMAL ACCOMODATION - ENT Exam ENT Exam: Mucous Membranes Moist - Respiratory Exam Respiratory Exam: Clear to Ausculation Bilateral. absent: Rales, Rhonchi - Cardiovascular Exam Cardiovascular Exam: REGULAR RHYTHM, +S1, +S2 - GI/Abdominal Exam GI & Abdominal Exam: Soft, Normal Bowel Sounds. absent: Distended, Tenderness - Extremities Exam Extremities Exam: absent: Calf Tenderness, Pedal Edema - Neurological Exam Neurological Exam: Alert, Awake, CN II-XII Intact, Oriented x3 - Psychiatric Exam Psychiatric exam: Normal Mood - Skin Skin Exam: Intact, Normal Color Assessment and Plan - Assessment and Plan (Free Text) Assessment: 37 F with PMHx of HTN non compliant with her medications (last took her BP medication 4 years ago) presents to the ED with cough, chest pain, and backpain, found to be septic with L lower lobe pneumonia. Sepsis with Left lower lobe pneumonia - WBC feb 30--> 18--> 10.9 -->9.5 - CT chest shows LLL pneumonia - Thoracic and lumbar MRI showed no acute dx - ID consulted - Cont Rocephin - Patient bacteremic with strep pneumonia, Recommend getting multiple myeloma work up - F/u MM work up - Septic work up with sputum culture, strep and legionella thus far neg . Influenza was neg - Duoneb as needed for wheezing and sob - Tylenol as needed for fever - Mucinex as needed for cough - Blood culture showed strep pneumonia - Daily labs R sided flank pain - CT abdomen pelvis w/o contrast - colonic distention - Pelvic US - no acute findings - Cont Flexaril as needed flexaril - Will follow closely Hypertension - EKG and chest CT shows signs of cardiomegaly - Inc Lisinopril and amlodipine - Cont HCTZ - Started on Hydralazine 25mg TID - Renal US- no renal a stenosis - renin and aldosterone ordered - Echo reviewed - Q6H vitals GI/DVT ppx - Protonix and lovenox sc - Heart healthy diet Case and plan was reviewed and discussed with Dr Church <Luciano Church - Last Filed: 03/02/18 16:23> Objective - Vital Signs/Intake and Output Vital Signs (last 24 hours): Temp Pulse Resp BP Pulse Ox 97.7 F 80 20 156/107 H 100 03/02/18 12:00 03/02/18 13:12 03/02/18 12:00 03/02/18 14:23 03/02/18 06:00 Intake and Output: 03/02/18 03/02/18 06:59 18:59 Intake Total 1840 Output Total 1000 Balance 840 - Medications Medications: Current Medications Acetaminophen (Tylenol 325mg Tab) 650 mg PO Q6H PRN PRN Reason: Fever >100.4 F Albuterol/Ipratropium (Duoneb 3 Mg/0.5 Mg (3 Ml) Ud) 3 ml IH [id number] PRN PRN Reason: Shortness of Breath Last Admin: 02/27/18 21:24 Dose: 3 ml Amlodipine Besylate (Norvasc) 10 mg PO DAILY [facility] Last Admin: 03/02/18 09:17 Dose: 10 mg Cyclobenzaprine HCl (Flexeril) 10 mg PO TID PRN PRN Reason: Muscle spasm Last Admin: 03/02/18 09:18 Dose: 10 mg Enoxaparin Sodium (Lovenox) 40 mg SC DAILY [facility]; Protocol Last Admin: 03/02/18 09:18 Dose: 40 mg Guaifenesin/Dextromethorphan (Mucinex-Dm 600-30 Mg) 1 tab PO BID [facility] Last Admin: 03/02/18 09:16 Dose: 1 tab Hydralazine HCl (Apresoline) 25 mg PO TID [facility] Last Admin: 03/02/18 13:12 Dose: 25 mg Hydrochlorothiazide (Microzide) 12.5 mg PO BID [facility] Last Admin: 03/02/18 09:20 Dose: 12.5 mg Ceftriaxone Sodium (Rocephin 2 Gm Ivpb) 2 gm in 100 mls @ 100 mls/hr IVPB DAILY [facility]; Protocol Stop: 03/10/18 12:56 Last Admin: 03/02/18 09:17 Dose: 100 mls/hr Ketorolac Tromethamine (Toradol) 15 mg IVP Q4 [facility] Last Admin: 03/02/18 16:19 Dose: 15 mg Lisinopril (Zestril) 40 mg PO DAILY [facility] Last Admin: 03/02/18 09:17 Dose: 40 mg Ondansetron HCl (Zofran Inj) 4 mg IVP Q6H PRN PRN Reason: Nausea/Vomiting Last Admin: 03/01/18 09:11 Dose: 4 mg Pantoprazole Sodium (Protonix Ec Tab) 40 mg PO 0600 [facility] Last Admin: 03/02/18 06:39 Dose: 40 mg - Labs Labs: 03/02/18 06:00 03/02/18 06:00 PT 13.8 SECONDS (9.4-12.5) H 02/26/18 09:35 INR 1.20 02/26/18 09:35 APTT 33.3 Seconds (25.1-36.5) 02/26/18 09:35 Attending/Attestation - Attestation I have personally seen and examined this patient.: Yes I have fully participated in the care of the patient.: Yes I have reviewed all pertinent clinical information, including history, physical exam and plan: Yes Notes (Text): Patient seen and examined with the residents, agree with above Clinically much improved. States her back pain getting better and most likely musculoskeletal History of HTN non-compliant with her home medications, bp has been difficult to control Optimize anti-hypertensive therapy and instructed on medication compliance on d/c Will discharge with PO Abx and bp medications once bp better controlled
[2018-03-03 04:18] VITALS: RESP 20; O2SAT 99
[2018-03-03] MEDS: Pantoprazole 40 mg EC Tab PO SCH (07:10)
[2018-03-03 07:37] LABS: BASO # 0.02 K/mm3 (0.0-2.0); BASO % 0.2 % (0.0-3.0); EOS # 0.2 (0.0-0.7); EOS % 2.1 % (1.5-5.0); GRAN # 7.17 (1.4-6.5); GRAN % 69.3 % (50.0-68.0); HEMOGLOBIN 10.4 g/dL (12.0-16.0); LYMPH # 1.3 (1.2-3.4); LYMPH % 12.6 % (22.0-35.0); MEAN CELL VOLUME 72.3 fl (80.0-105.0); MEAN CORPUSCULAR HEMOGLOBIN 23.1 pg (25.0-35.0); MEAN CORPUSCULAR HGB CONC 31.9 g/dl (31.0-37.0); MEAN PLATELET VOLUME 10.4 fl (7.0-11.0); MONO # 1.6 (0.1-0.6); MONO % 15.8 % (1.0-6.0); RBC 4.51 10^6/uL (3.5-6.1); RED CELL DISTRIBUTION WIDTH 14.6 % (11.5-14.5); WHITE BLOOD COUNT 10.4 10^3/uL (4.5-11.0)
[2018-03-03 07:53] LABS: ALB/GLOB RATIO 0.8 (1.1-1.8); ALBUMIN 3.5 g/dL (3.0-4.8); ALT/SGPT 19 U/L (7-56); AST/SGOT 17 U/L (14-36); BLOOD UREA NITROGEN 14 mg/dL (7-21); CALCIUM 8.9 mg/dL (8.4-10.5); GFR NON-AFRICAN AMERICAN > 60
[2018-03-03] MEDS: guaiFENesin-DM 600-30 mg ER Tab PO SCH (09:35)
[2018-03-03] MEDS: Enoxaparin 40 mg Syringe SC SCH (09:35)
[2018-03-03] MEDS: cefTRIAXone 2 GM IN NS 2 GM/100 ML BAG IVPB SCH (09:36)
--- NOTE | 2018-03-03 12:01 | CP.PCM.PN ---
Subjective - Date & Time of Evaluation Date of Evaluation: 03/03/18 Time of Evaluation: 11:25 - Subjective Subjective: Still having back pain but breathing, cough are better, no more fevers. Objective - Vital Signs/Intake and Output Vital Signs (last 24 hours): Temp Pulse Resp BP Pulse Ox 97.1 F L 88 21 166/116 H 100 03/02/18 18:45 03/02/18 18:45 03/02/18 18:45 03/02/18 18:45 03/02/18 06:00 - Medications Medications: Current Medications Acetaminophen (Tylenol 325mg Tab) 650 mg PO Q6H PRN PRN Reason: Fever >100.4 F Albuterol/Ipratropium (Duoneb 3 Mg/0.5 Mg (3 Ml) Ud) 3 ml IH [id number] PRN PRN Reason: Shortness of Breath Last Admin: 02/27/18 21:24 Dose: 3 ml Amlodipine Besylate (Norvasc) 10 mg PO DAILY [facility] Last Admin: 03/02/18 09:17 Dose: 10 mg Cyclobenzaprine HCl (Flexeril) 10 mg PO TID PRN PRN Reason: Muscle spasm Last Admin: 03/02/18 17:28 Dose: 10 mg Enoxaparin Sodium (Lovenox) 40 mg SC DAILY [facility]; Protocol Last Admin: 03/02/18 09:18 Dose: 40 mg Guaifenesin/Dextromethorphan (Mucinex-Dm 600-30 Mg) 1 tab PO BID [facility] Last Admin: 03/02/18 17:28 Dose: 1 tab Hydralazine HCl (Apresoline) 25 mg PO TID [facility] Last Admin: 03/02/18 17:30 Dose: 25 mg Hydrochlorothiazide (Microzide) 12.5 mg PO BID [facility] Last Admin: 03/02/18 17:31 Dose: 12.5 mg Ceftriaxone Sodium (Rocephin 2 Gm Ivpb) 2 gm in 100 mls @ 100 mls/hr IVPB DAILY [facility]; Protocol Stop: 03/10/18 12:56 Last Admin: 03/02/18 09:17 Dose: 100 mls/hr Ketorolac Tromethamine (Toradol) 15 mg IVP Q4 [facility] Last Admin: 03/02/18 16:19 Dose: 15 mg Lisinopril (Zestril) 40 mg PO DAILY [facility] Last Admin: 03/02/18 09:17 Dose: 40 mg Ondansetron HCl (Zofran Inj) 4 mg IVP Q6H PRN PRN Reason: Nausea/Vomiting Last Admin: 03/01/18 09:11 Dose: 4 mg Pantoprazole Sodium (Protonix Ec Tab) 40 mg PO 0600 [facility] Last Admin: 03/02/18 06:39 Dose: 40 mg - Labs Labs: 03/02/18 06:00 03/02/18 06:00 PT 13.8 SECONDS (9.4-12.5) H 02/26/18 09:35 INR 1.20 02/26/18 09:35 APTT 33.3 Seconds (25.1-36.5) 02/26/18 09:35 - Constitutional Appears: No Acute Distress, Chronically Ill - Head Exam Head Exam: NORMAL INSPECTION - Respiratory Exam Respiratory Exam: Decreased Breath Sounds - Cardiovascular Exam Cardiovascular Exam: +S1, +S2 - GI/Abdominal Exam GI & Abdominal Exam: Soft. absent: Tenderness Assessment and Plan - Assessment and Plan (Free Text) Plan: Assessment sepsis due to Strep pneumo left lower lobe CAP with Strep pneumo bacteremia HTN history of spinal epidural complication during history of tobacco abuse and cannabis use Plan continue Rocephin to complete another 6-7 days of antibiotics - should NOT switch to Levaquin since her QTc is prolonged - called nurse on the floor that patient cannot be switched to Levaquin 2D echo is negative for vegetations HIV test is negative
[2018-03-03 12:58] VITALS: TEMP 99.4
--- NOTE | 2018-03-03 14:07 | CP.PCM.DIS ---
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 Routine Comment: PNEUMONIA Physician Instructions: Reason For Exam: EVALUATION Transition In Care/Readmission Reduction Routine Comment: Physician Instructions: Reason For Exam: EVALUATION Time Spent in preparation of Discharge (in minutes): 35 Hospital Course - Lab Results Lab Results: Micro Results 02/28/18 09:15 Blood Blood Culture - Preliminary NO GROWTH AFTER 3 DAYS 02/28/18 08:45 Blood Blood Culture - Preliminary NO GROWTH AFTER 3 DAYS 02/28/18 09:30 Sputum Gram Stain - Final 02/28/18 09:30 Sputum Sputum Culture - Final Yeast Species 02/26/18 10:30 Blood-Venous Blood Culture - Final Streptococcus Pneumoniae 02/26/18 10:30 Blood-Venous Gram Stain - Final 02/26/18 10:00 Blood-Venous S.aureus & Coag-Neg Staph PNA FISH - Final 02/26/18 10:00 Blood-Venous Blood Culture - Final Streptococcus Pneumoniae 02/26/18 10:00 Blood-Venous Gram Stain - Final 02/26/18 10:20 Urine,Clean Catch Urine Culture - Final No Growth (<1,000 CFU/ML) Most Recent Lab Values WBC 10.4 10^3/uL (4.5-11.0) 03/03/18 07:00 RBC 4.51 10^6/uL (3.5-6.1) 03/03/18 07:00 Hgb 10.4 g/dL (12.0-16.0) L 03/03/18 07:00 Hct 32.6 % (36.0-48.0) L 03/03/18 07:00 MCV 72.3 fl (80.0-105.0) L 03/03/18 07:00 MCH 23.1 pg (25.0-35.0) L 03/03/18 07:00 MCHC 31.9 g/dl (31.0-37.0) 03/03/18 07:00 RDW 14.6 % (11.5-14.5) H 03/03/18 07:00 Plt Count 261 10^3/uL (120.0-450.0) 03/03/18 07:00 MPV 10.4 fl (7.0-11.0) 03/03/18 07:00 Gran % 69.3 % (50.0-68.0) H 03/03/18 07:00 Lymph % (Auto) 12.6 % (22.0-35.0) L 03/03/18 07:00 O[place]ana % (Auto) 15.8 % (1.0-6.0) H 03/03/18 07:00 Eos % (Auto) 2.1 % (1.5-5.0) 03/03/18 07:00 Baso % (Auto) 0.2 % (0.0-3.0) 03/03/18 07:00 Gran # 7.17 (1.4-6.5) H 03/03/18 07:00 Lymph # (Auto) 1.3 (1.2-3.4) 03/03/18 07:00 [place] # (Auto) 1.6 (0.1-0.6) H 03/03/18 07:00 Eos # (Auto) 0.2 (0.0-0.7) 03/03/18 07:00 Baso # (Auto) 0.02 K/mm3 (0.0-2.0) 03/03/18 07:00 Neutrophils % (Manual) 77 % (50.0-70.0) H 02/26/18 09:35 Band Neutrophils % 10 % (0-2) H 02/26/18 09:35 Lymphocytes % (Manual) 9 % (22.0-35.0) L 02/26/18 09:35 Monocytes % (Manual) 4 % (1.0-6.0) 02/26/18 09:35 Platelet Evaluation Normal (NORMAL) 02/26/18 09:35 ESR 66 mm/hr (0.0-20.0) H 03/01/18 13:40 PT 13.8 SECONDS (9.4-12.5) H 02/26/18 09:35 INR 1.20 02/26/18 09:35 APTT 33.3 Seconds (25.1-36.5) 02/26/18 09:35 D-Dimer, Quantitative 269 ng/mlDDU (0-243) H 02/26/18 09:35 pO2 32 mm/Hg (30-55) 02/26/18 10:14 VBG pH 7.35 (7.32-7.43) 02/26/18 10:14 VBG pCO2 48.0 (40-60) 02/26/18 10:14 VBG HCO3 26.5 mmol/l (21-28) 02/26/18 10:14 VBG Total CO2 28.0 mmol.L (22-28) 02/26/18 10:14 VBG O2 Sat (Calc) 63.7 % (40-65) 02/26/18 10:14 VBG Base Excess 0.3 mmol/L (0.0-2.0) 02/26/18 10:14 VBG Potassium 3.6 mmol/L (3.6-5.2) 02/26/18 10:14 Sodium 135.0 mmol/L (132-148) 02/26/18 10:14 Chloride 102.0 mmol/L (98-107) 02/26/18 10:14 Glucose 121 mg/dl (65-105) H 02/26/18 10:14 Lactate 1.0 mmol/L (0.7-2.1) 02/26/18 10:14 FiO2 21.0 % 02/26/18 10:14 Sodium 136 mmol/L (132-148) 03/03/18 07:00 Potassium 4.1 mmol/L (3.6-5.0) 03/03/18 07:00 Chloride 102 mmol/L (98-107) 03/03/18 07:00 Carbon Dioxide 27 mmol/L (21-33) 03/03/18 07:00 Anion Gap 11 (10-20) 03/03/18 07:00 BUN 14 mg/dL (7-21) 03/03/18 07:00 Creatinine 0.7 mg/dl (0.7-1.2) 03/03/18 07:00 Est GFR ( Amer) > 60 03/03/18 07:00 Est GFR (Non-Af Amer) > 60 03/03/18 07:00 POC Glucose (mg/dL) 87 mg/dL (65-110) 03/03/18 11:13 Random Glucose 91 mg/dL (70-110) 03/03/18 07:00 Hemoglobin A1c 5.9 % (4.2-6.5) 02/26/18 17:00 Calcium 8.9 mg/dL (8.4-10.5) 03/03/18 07:00 Magnesium 2.2 mg/dL (1.7-2.2) 02/27/18 05:50 Total Bilirubin 0.6 mg/dL (0.2-1.3) 03/03/18 07:00 AST 17 U/L (14-36) 03/03/18 07:00 ALT 19 U/L (7-56) 03/03/18 07:00 Alkaline Phosphatase 58 U/L (38-126) 03/03/18 07:00 Troponin I 0.05 ng/mL 02/26/18 22:00 C-React Prot High Sens > 15.00 mg/L (1.00-3.00) H 02/26/18 09:00 Total Protein 8.1 g/dL (5.8-8.3) 03/03/18 07:00 Albumin 3.5 g/dL (3.0-4.8) 03/03/18 07:00 Globulin 4.5 gm/dL 03/03/18 07:00 Albumin/Globulin Ratio 0.8 (1.1-1.8) L 03/03/18 07:00 Procalcitonin 1.77 NG/ML (0.19-0.49) H 03/01/18 13:40 TSH 3rd Generation 0.58 mIU/mL (0.46-4.68) 02/26/18 09:35 Venous Blood Potassium 3.6 mmol/L (3.6-5.2) 02/26/18 10:14 Urine Color Yellow (YELLOW) 02/26/18 10:30 Urine Appearance Clear (CLEAR) 02/26/18 10:30 Urine pH 6.5 (4.7-8.0) 02/26/18 10:30 Ur Specific Orion <= 1.005 (1.005-1.035) 02/26/18 10:30 Urine Protein Negative mg/dL (<30 mg/dL) 02/26/18 10:30 Urine Glucose (UA) Negative mg/dL (NEGATIVE) 02/26/18 10:30 Urine Ketones Negative mg/dL (NEGATIVE) 02/26/18 10:30 Urine Blood Negative (NEGATIVE) 02/26/18 10:30 Urine Nitrate Negative (NEGATIVE) 02/26/18 10:30 Urine Bilirubin Negative (NEGATIVE) 02/26/18 10:30 Urine Urobilinogen 1.0 E.U./dL (<1 E.U./dL) H 02/26/18 10:30 Ur Leukocyte Esterase Negative Olinda/uL (NEGATIVE) 02/26/18 10:30 Urine Opiates Screen Positive (NEGATIVE) H 02/27/18 09:00 Urine Methadone Screen Negative (NEGATIVE) 02/27/18 09:00 Ur Barbiturates Screen Negative (NEGATIVE) 02/27/18 09:00 Ur Phencyclidine Scrn Negative (NEGATIVE) 02/27/18 09:00 Ur Amphetamines Screen Negative (NEGATIVE) 02/27/18 09:00 U Benzodiazepines Scrn Negative (NEGATIVE) 02/27/18 09:00 U Oth Cocaine Metabols Negative (NEGATIVE) 02/27/18 09:00 U Cannabinoids Screen Positive (NEGATIVE) H 02/27/18 09:00 Complement C3 89.0 mg/dL (88.0-165.0) 03/02/18 06:00 Complement C4 17.8 mg/dL (14.0-44.0) 03/02/18 06:00 HIV 1&2 Ag/Ab, 4th Gen Nonreactive (Nonreactive) 02/26/18 20:30 Influenza Typ A,B (EIA) Negative for flu a/b (NEGATIVE) 02/26/18 10:18 Ur L.pneumophila Ag Negative (NEGATIVE) 02/27/18 09:00 Pneumocystis Source Serum 02/26/18 20:30 S. pneumoniae Antigen Not detected 02/26/18 20:30 - Hospital Course Hospital Course: David Frank, PGY-1 Discharge Summary for Hospitalist Service 37 F with PMHx of HTN and non compliant with her medications (last took her BP medication 4 years ago) who presented with sepsis. Patient was found to have a lower lobe pneumonia on CXR and CT scan associated with a leukocytosis of 30. Thoracic and lumbar MRIs showed no acute disease. Infectious Disease (Dr. Morris) was consulted, who started patient on Rocephin 1 gm daily. Blood culture showed strep pneumonia. Duonebs Tylenol and Mucinex were added to help with painful cough and associated shortness of breath. Influenza was negative. Sputum culture, strep and legionella were found to be negative. Leukocytosis resolved over hospitalization course. Patient also complained of R sided flank pain. CT abdomen without contrast showed colonic distension, but pelvic ulatrasound showed no acute findings. Flexeril was added for muscular pain. Patient has history of uncontrolled hypertension. EKG and chest CT showed signs of cardiomegaly. EKG also showed prolonged QT at 517. His home doses of Lisinopril and amlodipine were increased, and we continued his HCTZ. Patient was also begun on Hydralazine 25mg TID as pressures were still elevated. Renal US was ordered and showed no renal astenosis. Renin and aldosterone and further renal workup was ordered. Echo showed mod-severe LVH with moderate pulmonary hypertension. Patient was medically optimized. Patient was sent home on Augmentin BID for the pneumonia (not Levaquin due to prolonged QT), as well as Amlodipine 10 mg, Hydralazine 50 mg TID, HCTZ 25 mg daily, Lisinopril 40 mg daily, Protonix and Nystatin oral suspension. Patient's blood pressure was elevated during admission, but came down to 147-95 upon discharge. Patient understood need to follow up with a PCP and be compliant with her medications. A note was given for a repeat chest x-ray in two weeks to see resolution of the pneumonia. Patient was instructed to keep a BP log. Patient was provided work note stating that she was hospitalized 02/26-03/03 and can return to work on 03/05. Patient was educated regarding the need to stop with ETOH, tobacco and any illicit drug use. Patient exhibited understanding. Patient's questions were answered in detail and to patient satisfaction. Multiple attempts were made to make an appointment at [facility]. Further attempts will be made tomorrow, but patient was provided with number of clinic to call and make an appointment if unsuccessful. Patient understood need to follow up and was prepared for discharge. For more complete details, please see hospital EMR. Patient seen, case reviewed and plan approved by Dr. Rader. Discharge Exam - Head Exam Head Exam: NORMAL INSPECTION - Additional Findings Additional findings: - Constitutional Appears: No Acute Distress - Head Exam Head Exam: ATRAUMATIC, NORMOCEPHALIC - Eye Exam Eye Exam: EOMI, PERRL Pupil Exam: NORMAL ACCOMODATION - ENT Exam ENT Exam: Mucous Membranes Moist - Respiratory Exam Respiratory Exam: Clear to Ausculation Bilateral. absent: Rales, Rhonchi - Cardiovascular Exam Cardiovascular Exam: REGULAR RHYTHM, +S1, +S2 - GI/Abdominal Exam GI & Abdominal Exam: Soft, Normal Bowel Sounds. absent: Distended, Tenderness - Extremities Exam Extremities Exam: absent: Calf Tenderness, Pedal Edema - Neurological Exam Neurological Exam: Alert, Awake, CN II-XII Intact, Oriented x3 - Psychiatric Exam Psychiatric exam: Normal Mood - Skin Skin Exam: Intact, Normal Color Discharge Plan - Discharge Medications Prescriptions: RX: amLODIPine [Norvasc] 10 mg PO DAILY 30 Days #30 tab Amoxicillin/Clavulanate [Augmentin 875 MG-125 MG] 1 tab PO BID #18 tab RX: hydrALAZINE [Apresoline] 50 mg PO Q8 #90 tab RX: Hydrochlorothiazide [Microzide] 25 mg PO DAILY #30 cap Ibuprofen [Motrin] 600 mg PO QID #25 tab RX: Lisinopril [Zestril] 40 mg PO DAILY 30 Days #30 tab Nystatin [Nystatin Oral Susp] 5 ml PO QID 10 Days ml RX: Pantoprazole [Protonix EC Tab] 40 mg PO 0600 14 Days #14 ect - Follow Up Plan Condition: STABLE Disposition: HOME/ ROUTINE Instructions: Pneumonia, Adult (DC) Additional Instructions: Please follow up at the [facility] in [facility]. To set up an appointment, please call [phone] on Monday. I will continue to make calls on your behalf for an appointment. Please have a repeat Chest x-ray performed in 2 weeks. A script was provided to you. Please take your medications as prescribed. Please avoid alcohol, tobacco or any illicit drugs. Please keep a log of your blood pressure measurements twice a day for when you follow up at the clinic. Should symptoms worsen or reoccur, please visit nearest emergency department. Please call 911 or go to the nearest ER in any event your symptoms return. Take all your medications as prescribed. 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 Comment: PNEUMONIA Physician Instructions: Reason For Exam: EVALUATION Transition In Care/Readmission Reduction Routine Comment: Physician Instructions: Reason For Exam: EVALUATION Hospital Course - Lab Results Lab Results: Micro Results 02/28/18 09:15 Blood Blood Culture - Preliminary NO GROWTH AFTER 3 DAYS 02/28/18 08:45 Blood Blood Culture - Preliminary NO GROWTH AFTER 3 DAYS 02/28/18 09:30 Sputum Gram Stain - Final 02/28/18 09:30 Sputum Sputum Culture - Final Yeast Species 02/26/18 10:30 Blood-Venous Blood Culture - Final Streptococcus Pneumoniae 02/26/18 10:30 Blood-Venous Gram Stain - Final 02/26/18 10:00 Blood-Venous S.aureus & Coag-Neg Staph PNA FISH - Final 02/26/18 10:00 Blood-Venous Blood Culture - Final Streptococcus Pneumoniae 02/26/18 10:00 Blood-Venous Gram Stain - Final 02/26/18 10:20 Urine,Clean Catch Urine Culture - Final No Growth (<1,000 CFU/ML) Most Recent Lab Values WBC 10.4 10^3/uL (4.5-11.0) 03/03/18 07:00 RBC 4.51 10^6/uL (3.5-6.1) 03/03/18 07:00 Hgb 10.4 g/dL (12.0-16.0) L 03/03/18 07:00 Hct 32.6 % (36.0-48.0) L 03/03/18 07:00 MCV 72.3 fl (80.0-105.0) L 03/03/18 07:00 MCH 23.1 pg (25.0-35.0) L 03/03/18 07:00 MCHC 31.9 g/dl (31.0-37.0) 03/03/18 07:00 RDW 14.6 % (11.5-14.5) H 03/03/18 07:00 Plt Count 261 10^3/uL (120.0-450.0) 03/03/18 07:00 MPV 10.4 fl (7.0-11.0) 03/03/18 07:00 Gran % 69.3 % (50.0-68.0) H 03/03/18 07:00 Lymph % (Auto) 12.6 % (22.0-35.0) L 03/03/18 07:00 [place] % (Auto) 15.8 % (1.0-6.0) H 03/03/18 07:00 Eos % (Auto) 2.1 % (1.5-5.0) 03/03/18 07:00 Baso % (Auto) 0.2 % (0.0-3.0) 03/03/18 07:00 Gran # 7.17 (1.4-6.5) H 03/03/18 07:00 Lymph # (Auto) 1.3 (1.2-3.4) 03/03/18 07:00 [place] # (Auto) 1.6 (0.1-0.6) H 03/03/18 07:00 Eos # (Auto) 0.2 (0.0-0.7) 03/03/18 07:00 Baso # (Auto) 0.02 K/mm3 (0.0-2.0) 03/03/18 07:00 Neutrophils % (Manual) 77 % (50.0-70.0) H 02/26/18 09:35 Band Neutrophils % 10 % (0-2) H 02/26/18 09:35 Lymphocytes % (Manual) 9 % (22.0-35.0) L 02/26/18 09:35 Monocytes % (Manual) 4 % (1.0-6.0) 02/26/18 09:35 Platelet Evaluation Normal (NORMAL) 02/26/18 09:35 ESR 66 mm/hr (0.0-20.0) H 03/01/18 13:40 PT 13.8 SECONDS (9.4-12.5) H 02/26/18 09:35 INR 1.20 02/26/18 09:35 APTT 33.3 Seconds (25.1-36.5) 02/26/18 09:35 D-Dimer, Quantitative 269 ng/mlDDU (0-243) H 02/26/18 09:35 pO2 32 mm/Hg (30-55) 02/26/18 10:14 VBG pH 7.35 (7.32-7.43) 02/26/18 10:14 VBG pCO2 48.0 (40-60) 02/26/18 10:14 VBG HCO3 26.5 mmol/l (21-28) 02/26/18 10:14 VBG Total CO2 28.0 mmol.L (22-28) 02/26/18 10:14 VBG O2 Sat (Calc) 63.7 % (40-65) 02/26/18 10:14 VBG Base Excess 0.3 mmol/L (0.0-2.0) 02/26/18 10:14 VBG Potassium 3.6 mmol/L (3.6-5.2) 02/26/18 10:14 Sodium 135.0 mmol/L (132-148) 02/26/18 10:14 Chloride 102.0 mmol/L (98-107) 02/26/18 10:14 Glucose 121 mg/dl (65-105) H 02/26/18 10:14 Lactate 1.0 mmol/L (0.7-2.1) 02/26/18 10:14 FiO2 21.0 % 02/26/18 10:14 Sodium 136 mmol/L (132-148) 03/03/18 07:00 Potassium 4.1 mmol/L (3.6-5.0) 03/03/18 07:00 Chloride 102 mmol/L (98-107) 03/03/18 07:00 Carbon Dioxide 27 mmol/L (21-33) 03/03/18 07:00 Anion Gap 11 (10-20) 03/03/18 07:00 BUN 14 mg/dL (7-21) 03/03/18 07:00 Creatinine 0.7 mg/dl (0.7-1.2) 03/03/18 07:00 Est GFR ( Amer) > 60 03/03/18 07:00 Est GFR (Non-Af Amer) > 60 03/03/18 07:00 POC Glucose (mg/dL) 87 mg/dL (65-110) 03/03/18 11:13 Random Glucose 91 mg/dL (70-110) 03/03/18 07:00 Hemoglobin A1c 5.9 % (4.2-6.5) 02/26/18 17:00 Calcium 8.9 mg/dL (8.4-10.5) 03/03/18 07:00 Magnesium 2.2 mg/dL (1.7-2.2) 02/27/18 05:50 Total Bilirubin 0.6 mg/dL (0.2-1.3) 03/03/18 07:00 AST 17 U/L (14-36) 03/03/18 07:00 ALT 19 U/L (7-56) 03/03/18 07:00 Alkaline Phosphatase 58 U/L (38-126) 03/03/18 07:00 Troponin I 0.05 ng/mL 02/26/18 22:00 C-React Prot High Sens > 15.00 mg/L (1.00-3.00) H 02/26/18 09:00 Total Protein 8.1 g/dL (5.8-8.3) 03/03/18 07:00 Albumin 3.5 g/dL (3.0-4.8) 03/03/18 07:00 Globulin 4.5 gm/dL 03/03/18 07:00 Albumin/Globulin Ratio 0.8 (1.1-1.8) L 03/03/18 07:00 Procalcitonin 1.77 NG/ML (0.19-0.49) H 03/01/18 13:40 TSH 3rd Generation 0.58 mIU/mL (0.46-4.68) 02/26/18 09:35 Venous Blood Potassium 3.6 mmol/L (3.6-5.2) 02/26/18 10:14 Urine Color Yellow (YELLOW) 02/26/18 10:30 Urine Appearance Clear (CLEAR) 02/26/18 10:30 Urine pH 6.5 (4.7-8.0) 02/26/18 10:30 Ur Specific Orion <= 1.005 (1.005-1.035) 02/26/18 10:30 Urine Protein Negative mg/dL (<30 mg/dL) 02/26/18 10:30 Urine Glucose (UA) Negative mg/dL (NEGATIVE) 02/26/18 10:30 Urine Ketones Negative mg/dL (NEGATIVE) 02/26/18 10:30 Urine Blood Negative (NEGATIVE) 02/26/18 10:30 Urine Nitrate Negative (NEGATIVE) 02/26/18 10:30 Urine Bilirubin Negative (NEGATIVE) 02/26/18 10:30 Urine Urobilinogen 1.0 E.U./dL (<1 E.U./dL) H 02/26/18 10:30 Ur Leukocyte Esterase Negative Olinda/uL (NEGATIVE) 02/26/18 10:30 Urine Opiates Screen Positive (NEGATIVE) H 02/27/18 09:00 Urine Methadone Screen Negative (NEGATIVE) 02/27/18 09:00 Ur Barbiturates Screen Negative (NEGATIVE) 02/27/18 09:00 Ur Phencyclidine Scrn Negative (NEGATIVE) 02/27/18 09:00 Ur Amphetamines Screen Negative (NEGATIVE) 02/27/18 09:00 U Benzodiazepines Scrn Negative (NEGATIVE) 02/27/18 09:00 U Oth Cocaine Metabols Negative (NEGATIVE) 02/27/18 09:00 U Cannabinoids Screen Positive (NEGATIVE) H 02/27/18 09:00 Complement C3 89.0 mg/dL (88.0-165.0) 03/02/18 06:00 Complement C4 17.8 mg/dL (14.0-44.0) 03/02/18 06:00 HIV 1&2 Ag/Ab, 4th Gen Nonreactive (Nonreactive) 02/26/18 20:30 Influenza Typ A,B (EIA) Negative for flu a/b (NEGATIVE) 02/26/18 10:18 Ur L.pneumophila Ag Negative (NEGATIVE) 02/27/18 09:00 Pneumocystis Source Serum 02/26/18 20:30 S. pneumoniae Antigen Not detected 02/26/18 20:30 Attending/Attestation - Attestation I have personally seen and examined this patient.: Yes I have fully participated in the care of the patient.: Yes I have reviewed all pertinent clinical information, including history, physical exam and plan: Yes Notes (Text): 03/03/18 18:04 Medical record note made by the resident after discussion with my direction and input after the patient was personally seen and examined by me. I have reviewed the chart and agree that the record accurately reflects by personal performance of the history, physical exam, data review, and medical decision-making, in the course for the patient. I have also personally directed the plan of care. 37 F with PMHx of HTN non compliant with her medications presents to the ED with cough, chest pain, and backpain, found to be septic with L lower lobe pneumonia. Blood culture grew strep pneumonia . Patient has responded well to IV antibiotics. She is afebrile, Leukocytosis has improved.Repeat blood cultures are negative. Echo is negative for vegetation. Patient is on room air.She will be discharged home on oral Augmentin .She will need repeat Chest X ray in 2 weeks. Blood pressure is better controlled with current medications (Hydralazine.HCTZ and Lisinopril0 Issue of ongoing drug abuse was discussed in detail with her. Issue of compliance with medication was discussed in detail. - Management plan was discussed in detail with patient. Education was provided.
[2018-03-03 15:52] VITALS: BP 133/65; PULSE 75
[2018-03-04 07:30] LABS: CREATININE, 24 HOUR URINE 1.37 g/24 h (0.50-2.15)
== END 2018-03-03 16:50 | disposition home or self-care (01) | DRG 584 ==
LOC: ED 08:52 → ERH 14:44 → 2RSO 21:10 → 2RNO 03-02 16:46
PROVIDERS: ADMIT Internal Medicine; ATTEND Internal Medicine
DX: A40.3 Sepsis due to Streptococcus pneumoniae (principal); J18.1 Lobar pneumonia, unspecified organism; F12.10 Cannabis abuse, uncomplicated; F17.210 Nicotine dependence, cigarettes, uncomplicated; I10 Essential (primary) hypertension; I27.20 Pulmonary hypertension, unspecified; I45.81 Long QT syndrome; Z79.899 Other long term (current) drug therapy; Z82.5 Family history of asthma and other chronic lower respiratory diseases; Z83.3 Family history of diabetes mellitus; Z91.14 Patient's other noncompliance with medication regimen; R10.9 Unspecified abdominal pain; D64.9 Anemia, unspecified